=== PATIENT | male | born 1940 | race Caucasian/White ===

== ENCOUNTER 2020-11-25 18:07 | Inpatient (IN) ==
--- NOTE | 2020-11-25 18:41 | Emergency Department Note ---
Impression & Plan Hypernatremia, Sepsis, Acute UTI, Respiratory failure, Elevated troponin, Elevated lactic acid level, Pulmonary edema, Altered mental status ED Provider Note Provider: Marlon Umana MD DATE OF SERVICE: 11/25/2020 CHIEF COMPLAINT: Weakness, lethargy, elevated sodium HISTORY OF PRESENT ILLNESS: Patient is a 80-year-old gentleman history of Lewy body dementia and enlarged prostate with retention issues currently with an indwelling catheter and history of UTI/VRE presenting via ambulance from [facility] today with report that he has been weaker more lethargic and has an elevated sodium. Patient himself and provide significant history but does not appear in any obvious distress. EMS report the patient is currently been on Bactrim for a urinary infection and sodium has been rising and is not acting himself so came here for further evaluation. Did discuss via phone with the patient's daughter and later the patient's other daughter at bedside patient's recent history. 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 Reportedly has a history of A. fib is anticoagulated on Eliquis. Daughter states she helped feed him on Wednesday perked up a little bit but thinks he is not getting enough to eat or drink. She has concerns about infection from the urine as well. She reports the patient would not want CPR or intubation would be okay with other medications and vasoactive infusions. REVIEW OF SYSTEMS: Unable to time for the patient due to his mental status PAST MEDICAL HISTORY: As noted above MEDICATIONS: Reviewed medication list from the facility SOCIAL HISTORY: Patient is retired realtor appraiser real estate, currently residing at nursing facility, PHYSICAL EXAM: GENERAL: alert to loud verbal and painful stimuli no acute distress on the stretcher laying on his left side. Patient does not appear to be oriented and does not answer significant questions. Head: normocephalic and atraumatic EYES: No injection, discharge or icterus. NECK: Trachea midline. Supple. ENT: Mucous membranes pink but dry. LUNGS: Airway patent. No retractions. Breath sounds coarse with diminished ba ses HEART: Irregular and tachycardic rate and rhythm. No chest wall tenderness ABDOMEN: Soft and non-tender, without guarding or rebound. Chronic Pisano in place with some injury to the penile meatus from chronic placement. Urine appears cloudy and dark yellow. BACK: No midline tenderness, No bilateral flank tenderness. SKIN: Acyanotic, warm, dry EXTREMITIES: Without swelling, tenderness or deformity NEUROLOGICAL: No focal deficits. No facial droop. Patient does not follow simple commands but moves all extremities. EK bpm atrial fibrillation ventricular response. No PVCs noted. No acute ST segment elevation noted with some anterior T wave changes without priors for available for comparison. CONTINUOUS CARDIAC MONITORING: was ordered and showed a heart rate of 90s - 120s bpm in atrial fibrillation Patient's laboratory studies and imaging reviewed. Differential includes Infection, dehydration, metabolic abnormality, hypo/hyperglycemia, electrolyte disturbance, anemia, hypoxia, cardiac sources, intracerebral event, toxicologic, neurologic, as well as other pathologies. IMPRESSION/MEDICAL DECISION MAKING: Patient presents with worsening lethargy and elevated sodium from his nursing facility. Discussed with family significant history of resistant UTIs including VRE (hospitalizations in the [facility] system). Urinalysis appears concerning for infection. Covered broadly with Zosyn and daptomycin. Patient's blood pressure low initially and given some IV fluid hydration; initially ordered for 3 L (over 30 mL/kg) but was held after approximately 1 L the patient had a decline in his respiratory status and x-ray is concerning for fluid overload. Initially was concerned for some dehydration given his hyponatremia and reported decreased intake however respiratory status does not seem to indicate that much dehydration given the significant pulmonary edema he is developing; patient without significant lower extremity swelling. Blood pressure did improve some. Patient was transitioned from nasal cannula to Oxymask and discussed with respiratory possibly running high flow nasal cannula although patient was able to avoid high flow nasal cannula. Lactate is elevated as well as slightly troponin. Believe is more of a demand situation related to his metabolic status and urine infection than ACS. Leukocytosis is not appreciated and only very mild anemia. Urinalysis is highly concerning for infection. No significant focal deficit and lower suspicion for acute CVA and no believe he need a head CT at this time. Covid was negative. Daughter present at bedside and updated. Hospitalist was contacted. Some slightly elevated heart rate but do not want to proceed with aggressive rate control given possible infectious source and his hypotension. Patient's repeat lactate is downtrending. Covid was negative. DIAGNOSIS: Hypernatremia, acute UTI, sepsis, hypoxic respiratory failure, elevated lactate, elevated troponin, pulmonary edema, ams DISPOSITION: Hospitalist will evaluate Daughter at bedside was updated on findings. Critical Care I have personally spent 40 minutes of critical care time in the direct management of this patient. This includes bedside care, interpretation of diagnostic studies, and testing, discussion with consultants, patient, and family members, and other required patient management activities. These 40 minutes is in excess of all separately billable procedures. Past Med/Surg History Social History Smoking Status: Unknown if ever smoked Hx Alcohol Use: No Hx Substance Use: No Preferred Language: Albanian Communication Ability: Impaired Refrigeration Installer Required: No Beliefs That Will Affect Care: None Current Living Situation: Personal Care Facility Other Information That Helps Us Care for You: No Feels Safe at Home: Declines to Answer Assistive Devices: Oxygen - Continuous Assistive Devices Comment: Chronic Pisano catheter. Allergies Allergies Allergy/AdvReac Type Severity Reaction Status Date / Time dorzolamide Allergy Unknown ON Verified 11/25/20 19:07 HEARTIDE MED LIST haloperidol [From Haldol] Allergy Unknown ON Verified 11/25/20 19:07 HEARTIDE MED LIST olanzapine [From Zyprexa] Allergy Unknown ON [facility] Med[facility] Home Medications Medication Instructions Recorded Confirmed acetaminophen [Tylenol] 650 mg PO Q6H PRN MDD 3 GRAMS/24 11/25/20 11/25/20 HOURS apixaban [Eliquis] 5 mg PO BID 11/25/20 11/25/20 bacitracin 1 applic TOPICAL TID 11/25/20 11/25/20 bisacodyl 5 mg PO Q24H PRN 11/25/20 11/25/20 citalopram [Celexa] 10 mg PO QAM 11/25/20 11/25/20 diltiazem HCl 30 mg PO TID 11/25/20 11/25/20 felodipine 10 mg PO DAILY 11/25/20 11/25/20 finasteride 5 mg PO DAILY 11/25/20 11/25/20 lorazepam [Ativan] 0.5 mg PO BID 11/25/20 11/25/20 memantine 10 mg PO BID 11/25/20 11/25/20 metoprolol tartrate 25 mg PO BID 11/25/20 11/25/20 pantoprazole 40 mg PO DAILY 11/25/20 11/25/20 polyethylene glycol 3350 [Miralax] 17 g PO QAM 11/25/20 11/25/20 quetiapine [Seroquel] 100 mg PO HS 11/25/20 11/25/20 quetiapine [Seroquel] See Rx Instructions .ROUTE .COMPLEX 11/25/20 11/25/20 rivastigmine tartrate 1.5 mg PO BID 11/25/20 11/25/20 sennosides [senna] 17.2 mg PO HS 11/25/20 11/25/20 sulfamethoxazole-trimethoprim 1 tab PO BID 11/25/20 11/25/20 [Bactrim DS] tamsulosin [Flomax] 0.4 mg PO DAILY 11/25/20 11/25/20 Results & Data (ED) Vital Signs Vital Signs - 24 hr 11/25/20 17:33 11/25/20 18:17 11/25/20 18:19 Temperature 36.8 C Temperature Source Oral Pulse Rate 106 H 139 H Pulse Rate [Bilateral Apical] Pulse Rate from SpO2 Sensor Pulse Rhythm Irregular Respiratory Rate 22 22 Respiratory Effort / Characteristics Non-Labored Respiratory Depth Normal Respiratory Pattern Regular Blood Pressure 86/48 L Blood Pressure [Left Arm] Blood Pressure Mean 60 Blood Pressure Mean [Left Arm] Blood Pressure Position Lying Pulse Oximetry 92 88 L 86 L Oxygen Delivery Method Oxymask Room Air Room Air Oxygen Flow Rate 10 Sepsis Recent Fever Within 48 Hours No Sepsis New/Unexplained Change in Mental Status No Sepsis Action Taken by Nursing Physician Notified Oxygen Flow Rate - Titration Pulse Oximetry Post Tiitration 11/25/20 18:20 11/25/20 18:29 11/25/20 18:31 Temperature Temperature Source Pulse Rate 118 H 110 H 118 H Pulse Rate [Bilateral Apical] Pulse Rate from SpO2 Sensor 113 H 107 H 116 H Pulse Rhythm Respiratory Rate 15 9 L 6 L Respiratory Effort / Characteristics Respiratory Depth Respiratory Pattern Blood Pressure 86/48 L 85/50 L 73/58 L Blood Pressure [Left Arm] Blood Pressure Mean 60 61 63 Blood Pressure Mean [Left Arm] Blood Pressure Position Pulse Oximetry 92 89 L Oxygen Delivery Method Nasal Cannula Nasal Cannula Oxygen Flow Rate 4 2 Sepsis Recent Fever Within 48 Hours Sepsis New/Unexplained Change in Mental Status Sepsis Action Taken by Nursing Oxygen Flow Rate - Titration 3 Pulse Oximetry Post Tiitration 90 11/25/20 18:38 11/25/20 18:45 11/25/20 18:47 Temperature Temperature Source Pulse Rate 110 H 111 H 112 H Pulse Rate [Bilateral Apical] Pulse Rate from SpO2 Sensor 106 H 110 H 105 H Pulse Rhythm Respiratory Rate 24 26 H 28 H Respiratory Effort / Characteristics Respiratory Depth Respiratory Pattern Blood Pressure 91/62 L 98/74 L Blood Pressure [Left Arm] Blood Pressure Mean 71 82 Blood Pressure Mean [Left Arm] Blood Pressure Position Pulse Oximetry 91 91 Oxygen Delivery Method Nasal Cannula Nasal Cannula Oxygen Flow Rate 4 4 Sepsis Recent Fever Within 48 Hours Sepsis New/Unexplained Change in Mental Status Sepsis Action Taken by Nursing Oxygen Flow Rate - Titration Pulse Oximetry Post Tiitration 11/25/20 18:51 11/25/20 19:00 11/25/20 19:13 Temperature Temperature Source Pulse Rate Pulse Rate [Bilateral Apical] Pulse Rate from SpO2 Sensor 106 H Pulse Rhythm Respiratory Rate 27 H 27 H 21 Respiratory Effort / Characteristics Non-Labored Respiratory Depth Respiratory Pattern Blood Pressure 101/56 L 91/66 L Blood Pressure [Left Arm] Blood Pressure Mean 71 74 Blood Pressure Mean [Left Arm] Blood Pressure Position Pulse Oximetry 92 91 Oxygen Delivery Method Nasal Cannula Nasal Cannula Oxygen Flow Rate 4 4 Sepsis Recent Fever Within 48 Hours Sepsis New/Unexplained Change in Mental Status Sepsis Action Taken by Nursing Oxygen Flow Rate - Titration Pulse Oximetry Post Tiitration 11/25/20 19:15 11/25/20 19:30 11/25/20 19:41 Temperature Temperature Source Pulse Rate 113 H 104 H 106 H Pulse Rate [Bilateral Apical] Pulse Rate from SpO2 Sensor 104 H 107 H 103 H Pulse Rhythm Respiratory Rate 24 22 24 Respiratory Effort / Characteristics Non-Labored Respiratory Depth Respiratory Pattern Blood Pressure 115/73 101/59 L 110/41 L Blood Pressure [Left Arm] Blood Pressure Mean 87 73 64 Blood Pressure Mean [Left Arm] Blood Pressure Position Pulse Oximetry 92 91 Oxygen Delivery Method Nasal Cannula Nasal Cannula Oxygen Flow Rate 4 4 Sepsis Recent Fever Within 48 Hours Sepsis New/Unexplained Change in Mental Status Sepsis Action Taken by Nursing Oxygen Flow Rate - Titration Pulse Oximetry Post Tiitration 11/25/20 19:45 11/25/20 19:46 11/25/20 19:47 Temperature Temperature Source Pulse Rate 108 H 116 H 112 H Pulse Rate [Bilateral Apical] Pulse Rate from SpO2 Sensor 97 H 104 H 102 H Pulse Rhythm Respiratory Rate 31 H 19 21 Respiratory Effort / Characteristics Respiratory Depth Respiratory Pattern Blood Pressure 90/72 L Blood Pressure [Left Arm] Blood Pressure Mean 78 Blood Pressure Mean [Left Arm] Blood Pressure Position Pulse Oximetry 90 91 Oxygen Delivery Method Nasal Cannula Oxygen Flow Rate 4 Sepsis Recent Fever Within 48 Hours Sepsis New/Unexplained Change in Mental Status Sepsis Action Taken by Nursing Oxygen Flow Rate - Titration Pulse Oximetry Post Tiitration 11/25/20 20:00 11/25/20 20:01 11/25/20 20:16 Temperature Temperature Source Pulse Rate 108 H 109 H 114 H Pulse Rate [Bilateral Apical] Pulse Rate from SpO2 Sensor 103 H 108 H Pulse Rhythm Respiratory Rate 19 19 20 Respiratory Effort / Characteristics Non-Labored Respiratory Depth Respiratory Pattern Blood Pressure 85/35 L 102/62 Blood Pressure [Left Arm] Blood Pressure Mean 51 75 Blood Pressure Mean [Left Arm] Blood Pressure Position Pulse Oximetry 92 89 L Oxygen Delivery Method Nasal Cannula Nasal Cannula Oxygen Flow Rate 4 4 Sepsis Recent Fever Within 48 Hours Sepsis New/Unexplained Change in Mental Status Sepsis Action Taken by Nursing Oxygen Flow Rate - Titration Pulse Oximetry Post Tiitration 11/25/20 20:23 11/25/20 20:26 11/25/20 20:30 Temperature Temperature Source Pulse Rate 113 H 109 H Pulse Rate [Bilateral Apical] 111 H Pulse Rate from SpO2 Sensor 107 H 102 H Pulse Rhythm Respiratory Rate 23 22 20 Respiratory Effort / Characteristics Non-Labored Respiratory Depth Respiratory Pattern Blood Pressure 101/43 L 95/61 L Blood Pressure [Left Arm] 101/43 L Blood Pressure Mean 62 72 Blood Pressure Mean [Left Arm] 62 Blood Pressure Position Pulse Oximetry 92 88 L 92 Oxygen Delivery Method Nasal Cannula Nasal Cannula Oxymask Oxygen Flow Rate 5 4 10 Sepsis Recent Fever Within 48 Hours Sepsis New/Unexplained Change in Mental Status Sepsis Action Taken by Nursing Oxygen Flow Rate - Titration Pulse Oximetry Post Tiitration 11/25/20 20:45 11/25/20 21:00 11/25/20 21:15 Temperature Temperature Source Pulse Rate 111 H 105 H 108 H Pulse Rate [Bilateral Apical] Pulse Rate from SpO2 Sensor 119 H 99 H 105 H Pulse Rhythm Respiratory Rate 20 20 16 Respiratory Effort / Characteristics Non-Labored Respiratory Depth Respiratory Pattern Blood Pressure 98/57 L 107/47 L 91/60 L Blood Pressure [Left Arm] Blood Pressure Mean 70 67 70 Blood Pressure Mean [Left Arm] Blood Pressure Position Pulse Oximetry 92 91 Oxygen Delivery Method Oxymask Oxymask Oxygen Flow Rate 10 10 Sepsis Recent Fever Within 48 Hours Sepsis New/Unexplained Change in Mental Status Sepsis Action Taken by Nursing Oxygen Flow Rate - Titration Pulse Oximetry Post Tiitration 11/25/20 21:30 11/25/20 21:31 Temperature Temperature Source Pulse Rate 112 H 111 H Pulse Rate [Bilateral Apical] Pulse Rate from SpO2 Sensor 109 H 106 H Pulse Rhythm Respiratory Rate 19 25 H Respiratory Effort / Characteristics Respiratory Depth Respiratory Pattern Blood Pressure 93/67 L Blood Pressure [Left Arm] Blood Pressure Mean 75 Blood Pressure Mean [Left Arm] Blood Pressure Position Pulse Oximetry 91 Oxygen Delivery Method Oxymask Oxygen Flow Rate 10 Sepsis Recent Fever Within 48 Hours Sepsis New/Unexplained Change in Mental Status Sepsis Action Taken by Nursing Oxygen Flow Rate - Titration Pulse Oximetry Post Tiitration Laboratory Data Result diagrams: 11/25/20 19:03 11/25/20 19:03 Lab Results 11/25/20 11/25/20 11/25/20 Range/Units 19:03 19:03 19:03 WBC 9.82 (4.8-10.8) K/uL RBC 3.93 L (4.7-6.1) M/uL Hgb 12.1 L (14.0-18.0) g/dL Hct 39.2 L (42-52) % MCV 99.7 (80-100) fL MCH 30.8 (25-34) pg MCHC 30.9 L (32-36) g/dL RDW Std Deviation 59.1 H (36.4-46.3) fL RDW Coeff of Sandrine 16.3 H (11.5-14.5) % Plt Count 120 L (130-400) K/uL MPV 13.0 H (7.4-10.4) fL Immature Gran % (Auto) 0.3 % Neut % (Auto) 89.2 % Lymph % (Auto) 5.8 % Edmonson % (Auto) 3.0 % Eos % (Auto) 1.7 % Baso % (Auto) 0.0 % Neut # (Auto) 8.76 H (1.4-6.5) K/uL Lymph # (Auto) 0.57 L (1.2-3.4) K/uL Edmonson # (Auto) 0.29 (0.11-0.59) K/uL Eos # (Auto) 0.17 (0-0.5) K/uL Baso # (Auto) 0.00 (0-0.2) K/uL Immature Gran # (Auto) 0.03 H (0.00-0.02) K/uL Platelet Estimate Normal (Normal) Echinocytes 2+ Acanthocytes (Spur) 1+ PT (9.0-12.0) Seconds INR (0.9-1.1) APTT (21.0-31.0) Seconds PTT Ratio Sodium 158 H* (136-145) mmol/L Potassium 4.4 (3.5-5.1) mmol/L Chloride 125 H (98-107) mmol/L Carbon Dioxide 26 (21-32) mmol/L Anion Gap 7.0 (3-11) BUN 39 H (7-18) mg/dl Creatinine 1.05 (0.6-1.4) mg/dl Est Cr Clr Drug Dosing 53.4 ml/min Est GFR ( Amer) 76.8 ml/min Est GFR (Non-Af Amer) 66.3 ml/min BUN/Creatinine Ratio 37.0 H (10-20) Glucose 92 (70-99) mg/dl Osmolality (280-300) mOsm/kg Lactate (0.4-2.0) mmol/L Calcium 8.8 (8.5-10.1) mg/dl Magnesium 2.5 H (1.8-2.4) mg/dl Total Bilirubin 0.8 (0.2-1) mg/dl AST 60 H (15-37) U/L ALT 41 (12-78) U/L Alkaline Phosphatase 77 (45-117) U/L Troponin I 0.054 H* (0-0.045) ng/ml Total Protein 5.3 L (6.4-8.2) gm/dl Albumin 2.3 L (3.4-5.0) gm/dl Globulin 3.0 (2.5-4.0) gm/dl Albumin/Globulin Ratio 0.8 L (0.9-2) Lipase 166 (73-393) U/L Procalcitonin 0.06 (0-0.5) ng/ml 06/21/21 06/21/21 06/21/21 Range/Units 19:03 19:03 19:03 WBC (4.8-10.8) K/uL RBC (4.7-6.1) M/uL Hgb (14.0-18.0) g/dL Hct (42-52) % MCV (80-100) fL MCH (25-34) pg MCHC (32-36) g/dL RDW Std Deviation (36.4-46.3) fL RDW Coeff of Sandrine (11.5-14.5) % Plt Count (130-400) K/uL MPV (7.4-10.4) fL Immature Gran % (Auto) % Neut % (Auto) % Lymph % (Auto) % Edmonson % (Auto) % Eos % (Auto) % Baso % (Auto) % Neut # (Auto) (1.4-6.5) K/uL Lymph # (Auto) (1.2-3.4) K/uL [place]on # (Auto) (0.11-0.59) K/uL Eos # (Auto) (0-0.5) K/uL Baso # (Auto) (0-0.2) K/uL Immature Gran # (Auto) (0.00-0.02) K/uL Platelet Estimate (Normal) Echinocytes Acanthocytes (Spur) PT 13.0 H (9.0-12.0) Seconds INR 1.3 H (0.9-1.1) APTT 32.7 H (21.0-31.0) Seconds PTT Ratio 1.2 Sodium (136-145) mmol/L Potassium (3.5-5.1) mmol/L Chloride (98-107) mmol/L Carbon Dioxide (21-32) mmol/L Anion Gap (3-11) BUN (7-18) mg/dl Creatinine (0.6-1.4) mg/dl Est Cr Clr Drug Dosing ml/min Est GFR ( Amer) ml/min Est GFR (Non-Af Amer) ml/min BUN/Creatinine Ratio (10-20) Glucose (70-99) mg/dl Osmolality 333 H (280-300) mOsm/kg Lactate 4.2 H* (0.4-2.0) mmol/L Calcium (8.5-10.1) mg/dl Magnesium (1.8-2.4) mg/dl Total Bilirubin (0.2-1) mg/dl AST (15-37) U/L ALT (12-78) U/L Alkaline Phosphatase (45-117) U/L Troponin I (0-0.045) ng/ml Total Protein (6.4-8.2) gm/dl Albumin (3.4-5.0) gm/dl Globulin (2.5-4.0) gm/dl Albumin/Globulin Ratio (0.9-2) Lipase (73-393) U/L Procalcitonin (0-0.5) ng/ml 11/25/20 Range/Units 20:51 WBC (4.8-10.8) K/uL RBC (4.7-6.1) M/uL Hgb (14.0-18.0) g/dL Hct (42-52) % MCV (80-100) fL MCH (25-34) pg MCHC (32-36) g/dL RDW Std Deviation (36.4-46.3) fL RDW Coeff of Sandrine (11.5-14.5) % Plt Count (130-400) K/uL MPV (7.4-10.4) fL Immature Gran % (Auto) % Neut % (Auto) % Lymph % (Auto) % [place]mons[place] % (Auto) % Eos % (Auto) % Baso % (Auto) % Neut # (Auto) (1.4-6.5) K/uL Lymph # (Auto) (1.2-3.4) K/uL [place] # (Auto) (0.11-0.59) K/uL Eos # (Auto) (0-0.5) K/uL Baso # (Auto) (0-0.2) K/uL Immature Gran # (Auto) (0.00-0.02) K/uL Platelet Estimate (Normal) Echinocytes Acanthocytes (Spur) PT (9.0-12.0) Seconds INR (0.9-1.1) APTT (21.0-31.0) Seconds PTT Ratio Sodium (136-145) mmol/L Potassium (3.5-5.1) mmol/L Chloride (98-107) mmol/L Carbon Dioxide (21-32) mmol/L Anion Gap (3-11) BUN (7-18) mg/dl Creatinine (0.6-1.4) mg/dl Est Cr Clr Drug Dosing ml/min Est GFR ( Amer) ml/min Est GFR (Non-Af Amer) ml/min BUN/Creatinine Ratio (10-20) Glucose (70-99) mg/dl Osmolality (280-300) mOsm/kg Lactate 2.3 H* (0.4-2.0) mmol/L Calcium (8.5-10.1) mg/dl Magnesium (1.8-2.4) mg/dl Total Bilirubin (0.2-1) mg/dl AST (15-37) U/L ALT (12-78) U/L Alkaline Phosphatase (45-117) U/L Troponin I (0-0.045) ng/ml Total Protein (6.4-8.2) gm/dl Albumin (3.4-5.0) gm/dl Globulin (2.5-4.0) gm/dl Albumin/Globulin Ratio (0.9-2) Lipase (73-393) U/L Procalcitonin (0-0.5) ng/ml Administered Medications Piperacillin Sod/Tazobactam (Sod 3.375 gm/ Dextrose) 115 mls @ 28.75 mls/hr IV Q8H SUSAN; Protocol Stop: 12/06/20 00:00 Last Admin: 11/26/20 00:43 Dose: 28.8 mls/hr Documented by: [id number] Discontinued Medications Albumin Human (Albumin Human 25% 12.5 Gm/50 Ml Vial) Confirm Administered Dose 25 gm IV .STK-MED ONE Stop: 11/25/20 21:00 Last Admin: 11/25/20 23:23 Dose: Not Given Documented by: [id number] Furosemide (Furosemide 40 Mg/4 Ml Vial) 40 mg IV ONE ONE Stop: 11/25/20 21:31 Last Admin: 11/25/20 21:31 Dose: 40 mg Documented by: [id number] Sodium Chloride (Nss 1000ml) 1,000 mls @ 999 mls/hr IV .Q1H1M SUSAN Stop: 11/25/20 19:39 Last Infusion: 11/25/20 19:57 Dose: 0 mls/hr Documented by: [id number] Admin: 11/25/20 18:55 Dose: 999 mls/hr Documented by: [id number] Lactated Ringer's (Lr) 1,000 mls @ 999 mls/hr IV .Q1H1M ONE Stop: 11/25/20 19:51 Last Infusion: 11/25/20 20:45 Dose: 0 mls/hr Documented by: [id number] Admin: 11/25/20 19:34 Dose: 999 mls/hr Documented by: [id number] Daptomycin 400 mg/ Syringe 8 mls @ 4 mls/min IV NOW ONE; Protocol Stop: 11/25/20 18:55 Last Admin: 11/25/20 19:37 Dose: 4 mls/min Documented by: [id number] Piperacillin Sod/Tazobactam Sod (Zosyn) 4.5 gm in 120 mls @ 240 mls/hr IV NOW ONE Stop: 11/25/20 19:25 Last Infusion: 11/25/20 20:15 Dose: 0 mls/hr Documented by: [id number] Admin: 11/25/20 19:34 Dose: 240 mls/hr Documented by: [id number] Albumin Human (Albumin 25%) 12.5 gm in 50 mls @ 50 mls/hr IV Q1H STA Stop: 11/25/20 21:55 Last Infusion: 11/25/20 22:08 Dose: 0 mls/hr Documented by: [id number] Admin: 11/25/20 21:05 Dose: 50 mls/hr Documented by: [id number] Albumin Human (Albumin 25%) 12.5 gm in 50 mls @ 50 mls/hr IV Q1H SUSAN Stop: 11/26/20 01:14 Last Infusion: 11/26/20 01:16 Dose: 0 mls/hr Documented by: [id number] Admin: 11/26/20 00:16 Dose: 50 mls/hr Documented by: [id number] Infusion: 11/26/20 00:15 Dose: 0 mls/hr Documented by: [id number] Admin: 11/25/20 23:27 Dose: 50 mls/hr Documented by: [id number] Infusion: 11/25/20 23:20 Dose: 0 mls/hr Documented by: [id number] Admin: 11/25/20 21:56 Dose: 50 mls/hr Documented by: [id number] Imaging Data Radiologist's Impression: Chest X-Ray 11/25/20 18:39 SINGLE VIEW CHEST CLINICAL HISTORY: Sepsis. FINDINGS: 2 AP, portable, supine chest radiographs are obtained. No prior studies are available for comparison at the time of dictation. The examination is degraded by portable technique and patient rotation. The patient's head obscures the apices. The patient is status post midline sternotomy. The heart is enlarged noting atherosclerotic calcification of the thoracic aorta. There is pulmonary vascular congestion with interstitial edema. Trace pleural effusions are suspected. No pneumothorax is seen. The skeletal structures are osteopenic. The bony thorax is grossly intact. IMPRESSION: 1. Cardiomegaly with evidence of congestive failure and interstitial edema. Radiographic follow-up to resolution is recommended. 2. Suspect small pleural effusions. ACT 112: Negative or not required by law. Electronically signed by: Car Avina M.D. 11/25/2020 7:44 PM Discharge Plan Visit Data Chief Complaint: Altered Mental Status Stated Complaint: AMS, LETHARGIC, ABNORMAL LABS ED Provider: Marlon Umana Discharge Problem: Hypernatremia, Sepsis, Acute UTI, Respiratory failure, Elevated troponin, Elevated lactic acid level, Pulmonary edema, Altered mental status Patient Disposition: Admitted As Inpatient Discharge Instructions Interventions: ED Discharge Assessment Last Done: 11/25/20 22:34 Discharge Problem: Sepsis Qualifiers: Sepsis type: sepsis due to unspecified organism Sepsis acute organ dysfunction status: with acute organ dysfunction Severe sepsis acute organ dysfunction type: acute respiratory failure Acute respiratory failure type: with hypoxia Severe sepsis shock status: unspecified Qualified Code(s): A41.9 - Sepsis, unspecified organism Respiratory failure Qualifiers: Chronicity: acute Respiratory failure complication: hypoxia Qualified Code(s): J96.01 - Acute respiratory failure with hypoxia Pulmonary edema Qualifiers: Chronicity: acute Qualified Code(s): J81.0 - Acute pulmonary edema Altered mental status Qualifiers: Altered mental status type: disorientation Qualified Code(s): R41.0 - Disorientation, unspecified
[2020-11-25] MEDS ORDERED: SODIUM CHLORIDE 0.9% 1000ML 1,000 ML IV SCH (18:45)
[2020-11-25] MEDS ORDERED: LACTATED RINGER'S 1,000 ML IV ONE (18:51)
[2020-11-25] MEDS ORDERED: DAPTOmycin 400 MG in SYRINGE 0 ML IV ONE (18:54)
[2020-11-25] MEDS ORDERED: PIPERACILL/TAZOBAC CONSULT ACTIVE PRN (18:56)
[2020-11-25] MEDS ORDERED: PIPERACILLIN/TAZOBACTAM 4.5 GM/120 ML BAG IV ONE (18:56)
[2020-11-25 19:17] LABS: Appearance Urine Turbid (Clear); Bacteria Urine Automated 4+ (Negative); Bilirubin Urine Negative (Negative); Blood Urine 2+ (Negative); Color Urine Dark Yellow; Epithelial Cell Urine Auto >30 /lpf (0-5); Glucose Urine UA Negative (Negative); Ketones Urine Negative (Negative); Leukocyte Esterase Urine 3+ (Negative); Nitrite Urine Negative (Negative); RBC Urine Automated >30 /hpf (0-4); Specific Gravity Urine 1.022 (1.000-1.030); Urobilinogen Urine Negative (Negative); WBC Urine Automated >30 /hpf (0-5); pH Urine >= 9.0 (4.5-7.5)
[2020-11-25 19:20] LABS: Protein Urine 1+ (Negative)
[2020-11-25 19:28] LABS: Cast Urine Automated 0 /lpf (0-5); Triple Phosphate Crystal Urine Present (None Prsent)
[2020-11-25 19:29] LABS: INR 1.3 (0.9-1.1); Partial Thromboplastin Ratio 1.2; Partial Thromboplastin Time 32.7 Seconds (21.0-31.0)
--- NOTE | 2020-11-25 19:46 | XRay Report ---
SINGLE VIEW CHEST CLINICAL HISTORY: Sepsis. FINDINGS: 2 AP, portable, supine chest radiographs are obtained. No prior studies are available for c omparison at the time of dictation. The examination is degraded by portable technique and patient rot ation. The patient's head obscures the apices. The patient is status post midline sternotomy. The hea rt is enlarged noting atherosclerotic calcification of the thoracic aorta. There is pulmonary vascula r congestion with interstitial edema. Trace pleural effusions are suspected. No pneumothorax is seen. The skeletal structures are osteopenic. The bony thorax is grossly intact. IMPRESSION: 1. Cardiomegaly with evidence of congestive failure and interstitial edema. Radiographic follow-up to resolution is recommended. 2. Suspect small pleural effusions. ACT 112: Negative or not required by law. Electronically signed by: Car Avina M.D. 11/25/2020 7:44 PM
[2020-11-25 20:04] LABS: Hematocrit (blood only) 39.2 % (42-52); Hemoglobin 12.1 g/dL (14.0-18.0); Mean Corpuscular Hemoglobin 30.8 pg (25-34); Mean Corpuscular Hgb Conc 30.9 g/dL (32-36); Mean Corpuscular Volume 99.7 fL (80-100); Platelet Count 120 K/uL (130-400); RDW Coefficient of Variation 16.3 % (11.5-14.5); RDW Standard Deviation 59.1 fL (36.4-46.3); Red Blood Count 3.93 M/uL (4.7-6.1); White Blood Count 9.82 K/uL (4.8-10.8)
[2020-11-25 20:05] LABS: Acanthocytes 1+; Albumin Globulin Ratio 0.8 (0.9-2); Albumin Level 2.3 gm/dl (3.4-5.0); Bilirubin,Total 0.8 mg/dl (0.2-1); Calcium 8.8 mg/dl (8.5-10.1); Creatinine Clr Calc Pharmacy 53.4 ml/min; Echinocytes 2+; Eosinophils # (auto) 0.17 K/uL (0-0.5); Eosinophils % (auto) 1.7 %; Est GFR (African American) 76.8 ml/min; Est GFR (Non-African American) 66.3 ml/min; Immature Granulocytes # (auto) 0.03 K/uL (0.00-0.02); Immature Granulocytes % (auto) 0.3 %; Lymphocytes # (auto) 0.57 K/uL (1.2-3.4); Lymphocytes % (auto) 5.8 %; Magnesium 2.5 mg/dl (1.8-2.4); Monocytes # (auto) 0.29 K/uL (0.11-0.59); Neutrophils # (auto) 8.76 K/uL (1.4-6.5); Neutrophils % (auto) 89.2 %; Platelet Estimate Normal (Normal); Potassium 4.4 mmol/L (3.5-5.1); Total Protein 5.3 gm/dl (6.4-8.2); Troponin I 0.054 ng/ml (0-0.045)
[2020-11-25] MEDS ORDERED: ALBUMIN 25% 12.5 GM/50 ML VIAL IV STA (20:56)
[2020-11-25] MEDS ORDERED: ALBUMIN HUMAN 25% 12.5 GM/50 ML VIAL IV ONE (20:59)
[2020-11-25] MEDS ORDERED: FUROSEMIDE 40 MG/4 ML VIAL IV ONE (21:30)
--- NOTE | 2020-11-25 21:48 | History & Physical Report ---
Date of Service November 25, 2020 Assessment & Plan (1) Altered mental status: Medications will be on hold until patient is able to swallow Present on Admission?: Yes (2) Hypernatremia: Sodium 158 upon admission, serum osmolality 333, urine osmolality 416. Patient did receive 1 L of normal saline and 1 L of all LR in the emergency department by the ED. However, he did become more hypoxic due to his present ation with pulmonary edema/CHF Follow serial laboratories Issues with balancing hypernatremia treatment and pulmonary edema in the face of sepsis Present on Admission?: Yes (3) Acute CHF: Acute CHF with hypoxia The patient will be admitted to telemetry for serial cardiac enzymes, serial EKG's, cardiac rhythm monitoring and a 2-D echocardiogram with Dopplers. Patient with unknown ejection fraction at this time He was given albumin 50 g IV followed by furosemide 40 mg IV while in the ED to improve hypoxia, attempting to balance this with his underlying hypernatremia. If his ejection fraction is low on morning echocardiogram, he may require a course of dobutamine Present on Admission?: Yes (4) Pulmonary edema: Pulse albumin and furosemide IV as his hyponatremia and CHF/pulmonary edema picture is monitored closely Present on Admission?: Yes (5) Elevated troponin: Following serial laboratories as noted above Present on Admission?: Yes (6) Acute UTI: Patient reportedly has had a number of admissions in the [facility] system for recurrent resistant UTIs, including VRE treated with linezolid. Follow urine culture and sensitivity Continue daptomycin IV and Zosyn IV is begun in the ED Present on Admission?: Yes (7) Sepsis: Balancing patient's issues with sepsis, hypernatremia and pulmonary edema as noted above. Present on Admission?: Yes (8) Atrial fibrillation: On chronic anticoagulation with apixaban, which will briefly be held until is able to take p.o. He may need to be placed on IV heparin and antrum if there is a prolonged interval Present on Admission?: Yes (9) Anxiety with depression: Holding medications until he can take p.o. Present on Admission?: Yes (10) BPH w urinary obs/LUTS: (11) Lewy body dementia: Lewy body dementia/anxiety with depression- Patient unable to contribute significantly to HPI or review review of systems Holding medications until is more alert and able to take p.o. Present on Admission?: Yes (12) Parkinson's disease: (13) Recurrent UTI: (14) GERD (gastroesophageal reflux disease): (15) Hypertension: History of Present Illness Chief Complaint: The patient is transferred to the emergency department from [facility] due to worsening generalized weakness, lethargy, confusion, increasing shortness of breath, decreased oral intake and laboratories showing an elevated sodium [facility] The patient is an 80-year-old male with a past medical history including Lewy body dementia, Parkinson's disease, restlessness and agitation, acute kidney failure, atrial fibrillation, BPH with LUTS, CAD, UTI, PAD, hypertension, neurogenic bladder, GERD, hyperlipidemia, anxiety, oropharyngeal phase dysphagia, cognitive deficit and recurrent major depressive disorder. He presents from [facility] as noted above. Work-up in the emergency department included following abnormal laboratories: Sodium 158, INR 1.3, AST 60, lactic acid 4.2, troponin 0.054, albumin 2.3, serum osmolality 333, urine osmolality 416. Patient was COVID-19 negative. Chest x-ray showed cardiomegaly with evidence of congestive heart failure and interstitial edema with radiographic follow-up to resolution recommended. Allergies Allergy/AdvReac Type Severity Reaction Status Date / Time dorzolamide Allergy Unknown ON Verified 11/25/20 19:07 [facility] haloperidol [From Haldol] Allergy Unknown ON Verified 11/25/20 19:07 [facility] olanzapine [From Zyprexa] Allergy Unknown ON Verified 11/25/20 19:07 [facility] Home Medications Medication Instructions Recorded Confirmed Type acetaminophen [Tylenol] 650 mg PO Q6H PRN MDD 3 GRAMS/24 11/25/20 11/25/20 History HOURS apixaban [Eliquis] 5 mg PO BID 11/25/20 11/25/20 History bacitracin 1 applic TOPICAL TID 11/25/20 11/25/20 History bisacodyl 5 mg PO Q24H PRN 11/25/20 11/25/20 History citalopram [Celexa] 10 mg PO QAM 11/25/20 11/25/20 History diltiazem HCl 30 mg PO TID 11/25/20 11/25/20 History felodipine 10 mg PO DAILY 11/25/20 11/25/20 History finasteride 5 mg PO DAILY 11/25/20 11/25/20 History lorazepam [Ativan] 0.5 mg PO BID 11/25/20 11/25/20 History memantine 10 mg PO BID 11/25/20 11/25/20 History metoprolol tartrate 25 mg PO BID 11/25/20 11/25/20 History pantoprazole 40 mg PO DAILY 11/25/20 11/25/20 History polyethylene glycol 3350 [Miralax] 17 g PO QAM 11/25/20 11/25/20 History quetiapine [Seroquel] 100 mg PO HS 11/25/20 11/25/20 History quetiapine [Seroquel] See Rx Instructions .ROUTE .COMPLEX 11/25/20 11/25/20 History rivastigmine tartrate 1.5 mg PO BID 11/25/20 11/25/20 History sennosides [senna] 17.2 mg PO HS 11/25/20 11/25/20 History sulfamethoxazole-trimethoprim 1 tab PO BID 11/25/20 11/25/20 History [Bactrim DS] tamsulosin [Flomax] 0.4 mg PO DAILY 11/25/20 11/25/20 History Past Med/Surg History Medical History (Updated 11/26/20 @ 05:04 by Dieudonne Zapata MD) Anxiety with depression Atrial fibrillation BPH w urinary obs/LUTS GERD (gastroesophageal reflux disease) Hypertension Lewy body dementia Parkinson's disease Recurrent UTI Social History Smoking Status: Unknown if ever smoked Hx Alcohol Use: No Hx Substance Use: No Preferred Language: Syriac Communication Ability: Impaired Crane Manager Required: No Beliefs That Will Affect Care: None Current Living Situation: Personal Care Facility Other Information That Helps Us Care for You: No Feels Safe at Home: Declines to Answer Assistive Devices: Oxygen - Continuous Assistive Devices Comment: Chronic Pisano catheter. Review of Systems Review of Systems: Unobtainable due to cognitive status Physical Exam Physical Exam: The patient is awake, alert and oriented 3, well developed and well nourished, normocephalic and atraumatic, lying in bed and in no acute distress. HEENT--PERRL, EOMI, mucous membranes and oropharynx dry. Neck--supple. No JVD. No bruits. Thyroid normal, trachea midline, no adenopathy. Heart--normal S1 and S2. No murmurs, rubs or gallops. Lungs--crackles at the bases to custodial up bilaterally. No respiratory distress, no accessory muscle use. Abdomen--normal bowel sounds and soft. Nontender. Nondistended. Extremities--2+ bilateral pretibial pitting edema Dermatologic--skin appears dry Neurologic--cranial nerves II through XII grossly intact. Rheumatologic--normal range of motion. Psychiatric--normal affect. Results & Data Results & Data ([facility]) Vital Signs (Past 12 Hours) Vital Signs Temp Pulse Pulse Resp BP BP Pulse Ox 11/25/20 21:00 25 H 92 11/25/20 20:26 111 H 22 101/43 L 88 L 11/25/20 20:00 27 H 92 11/25/20 19:46 116 H 19 90/72 L 11/25/20 19:45 108 H 31 H 90 11/25/20 19:41 106 H 24 110/41 L 11/25/20 19:30 104 H 22 101/59 L 91 11/25/20 19:15 113 H 24 115/73 92 11/25/20 19:13 21 91 11/25/20 19:00 27 H 91/66 L 92 11/25/20 18:51 27 H 101/56 L 11/25/20 18:47 112 H 28 H 98/74 L 91 11/25/20 18:45 111 H 26 H 11/25/20 18:38 110 H 24 91/62 L 91 11/25/20 18:31 118 H 6 L 73/58 L 11/25/20 18:29 110 H 9 L 85/50 L 89 L 11/25/20 18:20 118 H 15 86/48 L 92 11/25/20 18:19 139 H 22 86 L 11/25/20 18:17 98.2 F 106 H 22 86/48 L 88 L 11/25/20 17:33 92 Laboratory Results Laboratory Results WBC 9.82 K/uL (4.8-10.8) 11/25/20 19:03 RBC 3.93 M/uL (4.7-6.1) L 11/25/20 19:03 Hgb 12.1 g/dL (14.0-18.0) L 11/25/20 19:03 Hct 39.2 % (42-52) L 11/25/20 19:03 MCV 99.7 fL (80-100) 11/25/20 19:03 MCH 30.8 pg (25-34) 11/25/20 19:03 MCHC 30.9 g/dL (32-36) L 11/25/20 19:03 RDW Std Deviation 59.1 fL (36.4-46.3) H 11/25/20 19:03 RDW Coeff of Sandrine 16.3 % (11.5-14.5) H 11/25/20 19:03 Plt Count 120 K/uL (130-400) L 11/25/20 19:03 MPV 13.0 fL (7.4-10.4) H 11/25/20 19:03 Immature Gran % (Auto) 0.3 % 11/25/20 19:03 Neut % (Auto) 89.2 % 11/25/20 19:03 Lymph % (Auto) 5.8 % 11/25/20 19:03 Sutton % (Auto) 3.0 % 11/25/20 19:03 Eos % (Auto) 1.7 % 11/25/20 19:03 Baso % (Auto) 0.0 % 11/25/20 19:03 Neut # (Auto) 8.76 K/uL (1.4-6.5) H 11/25/20 19:03 Lymph # (Auto) 0.57 K/uL (1.2-3.4) L 11/25/20 19:03 Sutton # (Auto) 0.29 K/uL (0.11-0.59) 11/25/20 19:03 Eos # (Auto) 0.17 K/uL (0-0.5) 11/25/20 19:03 Baso # (Auto) 0.00 K/uL (0-0.2) 11/25/20 19:03 Immature Gran # (Auto) 0.03 K/uL (0.00-0.02) H 11/25/20 19:03 Platelet Estimate Normal (Normal) 11/25/20 19:03 Echinocytes 2+ 11/25/20 19:03 Acanthocytes (Spur) 1+ 11/25/20 19:03 PT 13.0 Seconds (9.0-12.0) H 11/25/20 19:03 INR 1.3 (0.9-1.1) H 11/25/20 19:03 APTT 32.7 Seconds (21.0-31.0) H 11/25/20 19:03 PTT Ratio 1.2 11/25/20 19:03 Sodium 158 mmol/L (136-145) H* 11/25/20 19:03 Potassium 4.4 mmol/L (3.5-5.1) 11/25/20 19:03 Chloride 125 mmol/L (98-107) H 11/25/20 19:03 Carbon Dioxide 26 mmol/L (21-32) 11/25/20 19:03 Anion Gap 7.0 (3-11) 11/25/20 19:03 BUN 39 mg/dl (7-18) H 11/25/20 19:03 Creatinine 1.05 mg/dl (0.6-1.4) 11/25/20 19:03 Est Cr Clr Drug Dosing 53.4 ml/min 11/25/20 19:03 Est GFR ( Amer) 76.8 ml/min 11/25/20 19:03 Est GFR (Non-Af Amer) 66.3 ml/min 11/25/20 19:03 BUN/Creatinine Ratio 37.0 (10-20) H 11/25/20 19:03 Glucose 92 mg/dl (70-99) 11/25/20 19:03 Osmolality 333 mOsm/kg (280-300) H 11/25/20 19:03 Lactate 2.3 mmol/L (0.4-2.0) H* 11/25/20 20:51 Calcium 8.8 mg/dl (8.5-10.1) 11/25/20 19:03 Magnesium 2.5 mg/dl (1.8-2.4) H 11/25/20 19:03 Total Bilirubin 0.8 mg/dl (0.2-1) 11/25/20 19:03 AST 60 U/L (15-37) H 11/25/20 19:03 ALT 41 U/L (12-78) 11/25/20 19:03 Alkaline Phosphatase 77 U/L (45-117) 11/25/20 19:03 Troponin I 0.052 ng/ml (0-0.045) H* 11/25/20 23:25 Total Protein 5.3 gm/dl (6.4-8.2) L 11/25/20 19:03 Albumin 2.3 gm/dl (3.4-5.0) L 11/25/20 19:03 Globulin 3.0 gm/dl (2.5-4.0) 11/25/20 19:03 Albumin/Globulin Ratio 0.8 (0.9-2) L 11/25/20 19:03 Lipase 166 U/L (73-393) 11/25/20 19:03 Procalcitonin 0.06 ng/ml (0-0.5) 11/25/20 19:03 Urine Color Dark Yellow 11/25/20 Unknown Urine Appearance Turbid (Clear) A 11/25/20 Unknown Urine pH >= 9.0 (4.5-7.5) H 11/25/20 Unknown Ur Specific Mcdermott 1.022 (1.000-1.030) 11/25/20 Unknown Urine Protein 1+ (Negative) H 11/25/20 Unknown Urine Glucose (UA) Negative (Negative) 11/25/20 Unknown Urine Ketones Negative (Negative) 11/25/20 Unknown Urine Blood 2+ (Negative) H 11/25/20 Unknown Urine Nitrite Negative (Negative) 11/25/20 Unknown Urine Bilirubin Negative (Negative) 11/25/20 Unknown Urine Urobilinogen Negative (Negative) 11/25/20 Unknown Ur Leukocyte Esterase 3+ (Negative) H 11/25/20 Unknown Urine WBC (Auto) >30 /hpf (0-5) H 11/25/20 Unknown Urine RBC (Auto) >30 /hpf (0-4) H 11/25/20 Unknown U Hyaline Cast (Auto) 0 /lpf (0-5) 11/25/20 Unknown U Epithel Cells (Auto) >30 /lpf (0-5) H 11/25/20 Unknown Urine Bacteria (Auto) 4+ (Negative) H 11/25/20 Unknown Urine Crystals Not Reportable 11/25/20 Unknown Triple Phos Crystals Present (None Prsent) A 11/25/20 Unknown Urine Osmolality 416 mOsm/kg (500-800) L 11/25/20 23:35 Nasal Screen MRSA (PCR) Positive (Negative) A 11/25/20 23:15 COVID-19 Eval Order Covid19 at [facility] 11/25/20 Unknown SARS-CoV-2 (PCR) NEGATIVE (Negative) 11/25/20 Unknown Impressions Chest X-Ray 11/25/20 18:39 SINGLE VIEW CHEST CLINICAL HISTORY: Sepsis. FINDINGS: 2 AP, portable, supine chest radiographs are obtained. No prior studies are available for comparison at the time of dictation. The examination is degraded by portable technique and patient rotation. The patient's head obscures the apices. The patient is status post midline sternotomy. The heart is enlarged noting atherosclerotic calcification of the thoracic aorta. There is pulmonary vascular congestion with interstitial edema. Trace pleural effusions are suspected. No pneumothorax is seen. The skeletal structures are osteopenic. The bony thorax is grossly intact. IMPRESSION: 1. Cardiomegaly with evidence of congestive failure and interstitial edema. Radiographic follow-up to resolution is recommended. 2. Suspect small pleural effusions. ACT 112: Negative or not required by law. Electronically signed by: Car Avina M.D. 11/25/2020 7:44 PM Code Status & VTE Plan Code Status DNR/DNI VTE Prophylaxis Plan VTE Prophylaxis will be ordered: Yes PG Care Time/CCT Total # of Minutes Spent Total Time Spent with Patient: Total time spent is greater than 50% in coordination of care (as documented) at patient's floor/unit and/or counseling patient: Coding Level of Care Code 73393 Initial Inpt Care Lvl 3 Diagnoses Altered mental status R41.0 Altered mental status type: disorientation Hypernatremia E87.0 Acute CHF I50.9 Pulmonary edema J81.0 Chronicity: acute Elevated troponin R77.8 Acute UTI N39.0 Sepsis A41.9; R65.20; J96.01 Acute respiratory failure type: with hypoxia Sepsis acute organ dysfunction status: with acute organ dysfunction Sepsis type: sepsis due to unspecified organism Severe sepsis acute organ dysfunction type: acute respiratory failure Severe sepsis shock status: unspecified Atrial fibrillation I48.91 Anxiety with depression F41.8 BPH w urinary obs/LUTS N40.1; N13.8 Lewy body dementia G31.83; F02.80 Parkinson's disease G20 Recurrent UTI N39.0 GERD (gastroesophageal reflux disease) K21.9 Hypertension I10 (1) Pulmonary edema Chronicity: acute Qualified Code(s): J81.0 - Acute pulmonary edema (2) Sepsis Acute respiratory failure type: with hypoxia Sepsis acute organ dysfunction status: with acute organ dysfunction Sepsis type: sepsis due to unspecified organism Severe sepsis acute organ dysfunction type: acute respiratory failure Severe sepsis shock status: unspecified Qualified Code(s): A41.9 - Sepsis, unspecified organism; R65.20 - Severe sepsis without septic shock; J96.01 - Acute respiratory failure with hypoxia (3) Altered mental status Altered mental status type: disorientation Qualified Code(s): R41.0 - Disorientation, unspecified
[2020-11-25] MEDS: ALBUMIN 25% 12.5 GM/50 ML VIAL IV SCH ×2 (21:56→23:27)
[2020-11-25] MEDS ORDERED: ONDANSETRON INJ 2 MG/ML 2 ML VIAL IV PRN (23:12)
[2020-11-25] MEDS ORDERED: ACETAMINOPHEN 1000 MG/100 ML IV IV PRN (23:12)
[2020-11-26] MEDS: ALBUMIN 25% 12.5 GM/50 ML VIAL IV SCH ×3 (00:16→03:42)
[2020-11-26] MEDS: PIPERACILLIN/TAZOBACTAM 3.375 GM in DEXTROSE 5% 100 ML IV SCH ×2 (00:43→09:35)
[2020-11-26] MEDS: DEXTROSE 5% 1,000 ML IV SCH ×2 (03:44→16:23)
[2020-11-26 06:10] LABS: INR 1.3 (0.9-1.1); Partial Thromboplastin Ratio 1.6; Prothrombin Time 13.2 Seconds (9.0-12.0)
[2020-11-26 06:40] LABS: Hematocrit (blood only) 34.5 % (42-52); Hemoglobin 10.6 g/dL (14.0-18.0); Mean Corpuscular Hemoglobin 31.2 pg (25-34); Mean Corpuscular Hgb Conc 30.7 g/dL (32-36); Mean Corpuscular Volume 101.5 fL (80-100); Mean Platelet Volume 13.4 fL (7.4-10.4); Platelet Count 102 K/uL (130-400); RDW Coefficient of Variation 16.4 % (11.5-14.5); RDW Standard Deviation 60.5 fL (36.4-46.3); White Blood Count 8.44 K/uL (4.8-10.8)
[2020-11-26 06:41] LABS: Acanthocytes 1+; Basophils # (auto) 0.01 K/uL (0-0.2); Basophils % (auto) 0.1 %; Eosinophils # (auto) 0.03 K/uL (0-0.5); Eosinophils % (auto) 0.4 %; Immature Granulocytes # (auto) 0.01 K/uL (0.00-0.02); Immature Granulocytes % (auto) 0.1 %; Lymphocytes # (auto) 0.44 K/uL (1.2-3.4); Lymphocytes % (auto) 5.2 %; Monocytes # (auto) 0.23 K/uL (0.11-0.59); Monocytes % (auto) 2.7 %; Neutrophils # (auto) 7.72 K/uL (1.4-6.5); Neutrophils % (auto) 91.5 %; Platelet Estimate Decreased (Normal)
[2020-11-26 07:10] LABS: Albumin Globulin Ratio 1.4 (0.9-2); BUN Creatinine Ratio 34.5 (10-20); Bilirubin,Total 1.4 mg/dl (0.2-1); Calcium 8.9 mg/dl (8.5-10.1); Creatinine Clr Calc Pharmacy 57.2 ml/min; Est GFR (African American) 83.5 ml/min; Globulin 2.2 gm/dl (2.5-4.0); Magnesium 2.6 mg/dl (1.8-2.4); Potassium 3.5 mmol/L (3.5-5.1); Total Protein 5.2 gm/dl (6.4-8.2)
[2020-11-26] MEDS: METOPROLOL TARTRATE 1 MG/ML VIAL IV SCH ×4 (11:20→23:53)
--- NOTE | 2020-11-26 14:27 | XCELERA ---
[id number]
[2020-11-26 14:44] LABS: BUN Creatinine Ratio 31.7 (10-20); Calcium 8.7 mg/dl (8.5-10.1); Creatinine Clr Calc Pharmacy 56.1 ml/min; Est GFR (African American) 81.4 ml/min; Est GFR (Non-African American) 70.3 ml/min; Potassium 4.1 mmol/L (3.5-5.1)
--- NOTE | 2020-11-26 15:09 | Electrocardiogram Report ---
Test Reason : Blood Pressure : / mmHG Vent. Rate : 115 BPM Atrial Rate : 115 BPM P-R Int : 000 ms QRS Dur : 072 ms QT Int : 410 ms P-R-T Axes : 000 059 027 degrees QTc Int : 567 ms Poor data quality, interpretation may be adversely affected Accelerated Junctional rhythm with Premature supraventricular complexes Low voltage QRS Nonspecific ST and T wave abnormality Abnormal ECG No previous ECGs available Confirmed by Yoshi Meza ([id number]) on 11/26/2020 3:09:34 PM Referred By: [facility] Confirmed By:Yoshi Meza
[2020-11-26] MEDS ORDERED: CEFEPIME CONSULT ACTIVE PRN (15:17)
[2020-11-26] MEDS: CEFEPIME 2,000 MG in SYRINGE 0 ML IV SCH (16:23)
--- NOTE | 2020-11-26 21:23 | Hospitalist Progress Note ---
Date of Service November 26, 2020 Assessment & Plan (1) Sepsis: due to UTI, urine culture growing gram neg rods, follow up blood cultures continue IV fluids, Cefepime check CBC and BMP in the AM (2) Acute UTI: Patient reportedly has had a number of admissions in the [facility] health system for recurrent resistant UTIs, including VRE treated with linezolid. Follow urine culture and sensitivity - gram neg rods continue Cefepime, stop Zosyn and Daptomycin (3) Altered mental status: metabolic encephalopathy on top of Lewy body dementia has dehydration, UTI treat underlying illness and see if his mental status improves (4) Hypernatremia: Sodium 158 upon admission, serum osmolality 333, urine osmolality 416. due to poor oral intake, free water deficit likely in range of a few liters continue D5W but increase rate to 100mL/hr repeat Na this afternoon still high at 157 change Zosyn to Cefepime as Zosyn has some Na in the solution repeat BMP in the AM (5) Atrial fibrillation: On chronic anticoagulation with apixaban, which will briefly be held until is able to take p.o. He may need to be placed on IV heparin and antrum if there is a prolonged interval (6) Lewy body dementia: Lewy body dementia/anxiety with depression- Patient unable to contribute significantly to HPI or review review of systems Holding medications until is more alert and able to take p.o. family interested in palliative care, POLST form completion (7) Acute CHF: Acute CHF with hypoxia resolved after Lasix and Albumin early this AM acute pulmonary edema was due to the 2 liters of fluids in the ED (8) Pulmonary edema: Pulse albumin and furosemide IV as his hyponatremia and CHF/pulmonary edema picture is monitored closely improved, lungs are clearing up, no respiratory distress (9) Elevated troponin: low at 0.05 twice, no concerns for ACS (10) Anxiety with depression: Holding medications until he can take p.o. (11) BPH w urinary obs/LUTS: (12) Parkinson's disease: (13) Recurrent UTI: (14) GERD (gastroesophageal reflux disease): (15) Hypertension: Admission and Anticipated Discharge Date Admission Date: November 25, 2020 Subjective patient is lethargic and confused, cannot get meaningful history or ROS from him this morning or this afternoon reviewed chart, from [facility], gets frequent UTI, h/o VRE, has had a perez since July labs: Na still high, increase D5W to 100mL/hr urine culture with gram negative rods, continue on Cefepime, changed from Zosyn as it contains some sodium and trying to lower sodium talked with his daughter at the bedside this afternoon his dementia has progressed a lot this past year and then after his in June he got really worse had to go into [facility] and has deteriorated further the daughter feels like he is on a downward spiral, will not get better, she questions the utility of return trips to the hospital she and her dad talked about what he would want, he did not want to be a burden his had a stroke when she was 57 and he took care of her as did his children she agreed to palliative consult tomorrow, discussed goals of care, POLST, likely would not want to bring him back to hospital, focus on comfort Review of Systems Review of Systems: Unobtainable due to cognitive status Physical Exam Constitutional: + ill appearing, + altered mental status, + frail appearing and + lethargic; no acute distress ENMT: Mouth: + dry oral mucous membranes Neck: trachea midline, no thyromegaly Respiratory: normal respiratory effort, lungs clear to auscultation Cardiovascular: Rate/Rhythm: + tachycardic and + irregularly irregular Heart Sounds: normal S1 and normal S2; no murmur Vessels: no JVD Extremities: normal capillary refill; no edema Gastrointestinal (Abdomen): normal bowel sounds, soft, nontender, no hepatosplenomegaly Musculoskeletal: no cyanosis or clubbing, extremities motor strength 5/5 Head/Neck/Chest: head atraumatic Skin: no rashes, warm and dry Neurologic: CN's II-XI intact bilaterally, moves all extremities and + confused; no focal motor deficits Psychiatric: Orientation: + not alert and + not oriented x 3 Lymphatic: no cervical or axillary lymphadenopathy Results & Data Results & Data ([facility]) Vital Signs (Past 12 Hours) Vital Signs Temp Pulse Pulse Resp BP BP Pulse Ox 11/26/20 20:28 119 H 111/82 11/26/20 19:00 36.6 C 119 H 18 111/82 98 11/26/20 16:29 130 H 125/84 11/26/20 16:00 124 H 11/26/20 15:35 36.7 C 130 H 19 125/84 97 11/26/20 11:20 123 H 119/70 11/26/20 10:41 36.5 C 123 H 19 119/70 97 Laboratory Results Laboratory Results - last 24 hr 11/25/20 11/25/20 11/25/20 19:03 20:51 23:15 WBC RBC Hgb Hct MCV MCH MCHC RDW Std Deviation RDW Coeff of Sandrine Plt Count MPV Immature Gran % (Auto) Neut % (Auto) Lymph % (Auto) [place] % (Auto) Eos % (Auto) Baso % (Auto) Neut # (Auto) Lymph # (Auto) [place] # (Auto) Eos # (Auto) Baso # (Auto) Immature Gran # (Auto) Platelet Estimate Acanthocytes (Spur) PT INR APTT PTT Ratio Sodium Potassium Chloride Carbon Dioxide Anion Gap BUN Creatinine Est Cr Clr Drug Dosing Est GFR ( Amer) Est GFR (Non-Af Amer) BUN/Creatinine Ratio Glucose Osmolality 333 H Lactate 2.3 H* Calcium Magnesium Total Bilirubin AST ALT Alkaline Phosphatase Troponin I Total Protein Albumin Globulin Albumin/Globulin Ratio Urine Osmolality Nasal Screen MRSA (PCR) Positive A 11/25/20 11/25/20 11/26/20 23:25 23:35 05:26 WBC 8.44 RBC 3.40 L Hgb 10.6 L Hct 34.5 L MCV 101.5 H MCH 31.2 MCHC 30.7 L RDW Std Deviation 60.5 H RDW Coeff of Sandrine 16.4 H Plt Count 102 L MPV 13.4 H Immature Gran % (Auto) 0.1 Neut % (Auto) 91.5 Lymph % (Auto) 5.2 [place] % (Auto) 2.7 Eos % (Auto) 0.4 Baso % (Auto) 0.1 Neut # (Auto) 7.72 H Lymph # (Auto) 0.44 L [place] # (Auto) 0.23 Eos # (Auto) 0.03 Baso # (Auto) 0.01 Immature Gran # (Auto) 0.01 Platelet Estimate Decreased L Acanthocytes (Spur) 1+ PT INR APTT PTT Ratio Sodium Potassium Chloride Carbon Dioxide Anion Gap BUN Creatinine Est Cr Clr Drug Dosing Est GFR ( Amer) Est GFR (Non-Af Amer) BUN/Creatinine Ratio Glucose Osmolality Lactate Calcium Magnesium Total Bilirubin AST ALT Alkaline Phosphatase Troponin I 0.052 H* Total Protein Albumin Globulin Albumin/Globulin Ratio Urine Osmolality 416 L Nasal Screen MRSA (PCR) 11/26/20 11/26/20 11/26/20 05:26 05:26 12:56 WBC RBC Hgb Hct MCV MCH MCHC RDW Std Deviation RDW Coeff of Sandrine Plt Count MPV Immature Gran % (Auto) Neut % (Auto) Lymph % (Auto) [place] % (Auto) Eos % (Auto) Baso % (Auto) Neut # (Auto) Lymph # (Auto) [place] # (Auto) Eos # (Auto) Baso # (Auto) Immature Gran # (Auto) Platelet Estimate Acanthocytes (Spur) PT 13.2 H INR 1.3 H APTT 41.0 H PTT Ratio 1.6 Sodium 156 H* 158 H* Potassium 3.5 D 4.1 D Chloride 125 H 125 H Carbon Dioxide 29 30 Anion Gap 2.0 L 3.0 BUN 34 H 32 H Creatinine 0.98 1.00 Est Cr Clr Drug Dosing 57.2 56.1 Est GFR ( Amer) 83.5 81.4 Est GFR (Non-Af Amer) 72.0 70.3 BUN/Creatinine Ratio 34.5 H 31.7 H Glucose 113 H 106 H Osmolality Lactate Calcium 8.9 8.7 Magnesium 2.6 H Total Bilirubin 1.4 H D AST 40 H ALT 35 Alkaline Phosphatase 58 Troponin I Total Protein 5.2 L Albumin 3.0 L Globulin 2.2 L Albumin/Globulin Ratio 1.4 Urine Osmolality Nasal Screen MRSA (PCR) Medications Administered Current Inpatient Medications Acetaminophen (Acetaminophen 1000 Mg/100 Ml Iv) 1,000 mg IV Q8H PRN PRN Reason: Pain or Fever Stop: 11/28/20 23:11 Dextrose (D5w) 1,000 mls @ 100 mls/hr IV .Q10H SUSAN Stop: 12/26/20 02:44 Last Admin: 11/26/20 16:23 Dose: 100 mls/hr Documented by: Cefepime HCl 2,000 mg/ Syringe 20 mls @ 5 mls/min IV Q12H SUSAN Stop: 12/06/20 15:59 Last Admin: 11/26/20 16:23 Dose: 5 mls/min Documented by: Metoprolol Tartrate (Metoprolol Tartrate 1 Mg/Ml Vial) 5 mg IV Q4 SUSAN Stop: 12/26/20 11:59 Last Admin: 11/26/20 20:28 Dose: 5 mg Documented by: Miscellaneous Information (Cefepime Consult Active) 1 ea N/A UD PRN PRN Reason: Consult Stop: 12/26/20 15:16 Ondansetron HCl (Ondansetron Inj 2 Mg/Ml 2 Ml Vial) 4 mg IV Q6H PRN PRN Reason: Nausea Stop: 12/25/20 23:11 PG Care Time/CCT Total # of Minutes Spent Total Time Spent with Patient: Total time spent is greater than 50% in coordination of care (as documented) at patient's floor/unit and/or counseling patient: Coding Level of Care Code 87884 Subseq Hosp Care Lvl 3 Diagnoses Sepsis A41.9; R65.20; J96.01 Acute respiratory failure type: with hypoxia Sepsis acute organ dysfunction status: with acute organ dysfunction Sepsis type: sepsis due to unspecified organism Severe sepsis acute organ dysfunction type: acute respiratory failure Severe sepsis shock status: unspecified Acute UTI N39.0 Altered mental status R41.0 Altered mental status type: disorientation Hypernatremia E87.0 Atrial fibrillation I48.91 Lewy body dementia G31.83; F02.80 Acute CHF I50.9 Pulmonary edema J81.0 Chronicity: acute Elevated troponin R77.8 Anxiety with depression F41.8 BPH w urinary obs/LUTS N40.1; N13.8 Parkinson's disease G20 Recurrent UTI N39.0 GERD (gastroesophageal reflux disease) K21.9 Hypertension I10 (1) Altered mental status Altered mental status type: disorientation Qualified Code(s): R41.0 - Dis orientation, unspecified (2) Pulmonary edema Chronicity: acute Qualified Code(s): J81.0 - Acute pulmonary edema (3) Sepsis Acute respiratory failure type: with hypoxia Sepsis acute organ dysfunction status: with acute organ dysfunction Sepsis type: sepsis due to unspecified organism Severe sepsis acute organ dysfunction type: acute respiratory failure Severe sepsis shock status: unspecified Qualified Code(s): A41.9 - Sepsis, unspecified organism; R65.20 - Severe sepsis without septic shock; J96.01 - Acute respiratory failure with hypoxia
[2020-11-27] MEDS: DEXTROSE 5% 1,000 ML IV SCH ×3 (02:27→22:11)
[2020-11-27] MEDS: CEFEPIME 2,000 MG in SYRINGE 0 ML IV SCH (03:49)
[2020-11-27] MEDS: METOPROLOL TARTRATE 1 MG/ML VIAL IV SCH ×5 (03:53→21:28)
[2020-11-27 07:48] LABS: Acanthocytes 2+; Eosinophils # (auto) 0.14 K/uL (0-0.5); Eosinophils % (auto) 1.9 %; Hematocrit (blood only) 37.9 % (42-52); Hemoglobin 11.7 g/dL (14.0-18.0); Immature Granulocytes # (auto) 0.02 K/uL (0.00-0.02); Immature Granulocytes % (auto) 0.3 %; Lymphocytes # (auto) 0.45 K/uL (1.2-3.4); Mean Corpuscular Hgb Conc 30.9 g/dL (32-36); Mean Corpuscular Volume 100.5 fL (80-100); Mean Platelet Volume 13.2 fL (7.4-10.4); Neutrophils # (auto) 6.56 K/uL (1.4-6.5); Neutrophils % (auto) 87.8 %; Platelet Count 110 K/uL (130-400); Platelet Estimate Decreased (Normal); RDW Coefficient of Variation 16.1 % (11.5-14.5); RDW Standard Deviation 58.9 fL (36.4-46.3); Red Blood Count 3.77 M/uL (4.7-6.1); White Blood Count 7.47 K/uL (4.8-10.8)
[2020-11-27 08:10] LABS: Albumin Level 2.6 gm/dl (3.4-5.0); BUN Creatinine Ratio 35.7 (10-20); Calcium 8.8 mg/dl (8.5-10.1); Creatinine Clr Calc Pharmacy 65.9 ml/min; Est GFR (African American) 94.7 ml/min; Est GFR (Non-African American) 81.7 ml/min; Magnesium 2.4 mg/dl (1.8-2.4); Potassium 3.5 mmol/L (3.5-5.1)
[2020-11-27 08:13] LABS: Albumin Globulin Ratio 0.9 (0.9-2); Bilirubin,Total 1.2 mg/dl (0.2-1); Globulin 2.8 gm/dl (2.5-4.0); Total Protein 5.4 gm/dl (6.4-8.2)
[2020-11-27] MEDS: ERTAPENEM SODIUM 1,000 MG in SODIUM CHLORIDE 0.9% 50 ML IV SCH (12:03)
--- NOTE | 2020-11-27 12:13 | Hospitalist Progress Note ---
Date of Service November 27, 2020 Assessment & Plan (1) Sepsis: due to UTI, urine culture growing Klebsiella ESBL and Providencia change to Ertapenem 1000mg IV daily will need to treat for 10-14 days due to complicated UTI with perez continue IV fluids, Na coming down (2) Acute UTI: Patient reportedly has had a number of admissions in the [facility] system for recurrent resistant UTIs, including VRE treated with linezolid. as above, urine culture with Klebsiella ESBL and Providencia Ertapenem 1gm IV daily (3) Altered mental status: metabolic encephalopathy on top of Lewy body dementia has dehydration, UTI more alert today, treat UTI and continue D5W, Na down to 151 consult speech therapy to see if we can feed him safely (4) Hypernatremia: Sodium 158 upon admission, serum osmolality 333, urine osmolality 416. due to poor oral intake, free water deficit likely in range of a few liters continue D5W but increase rate to 100mL/hr Na down to 151, Cl 121 repeat BMP in the AM (5) Atrial fibrillation: On chronic anticoagulation with apixaban try to resume tomorrow if he is safe to take PO (6) Lewy body dementia: Lewy body dementia/anxiety with depression- Patient unable to contribute significantly to HPI or review of systems Holding medications until is more alert and able to take p.o. family interested in palliative care, POLST form completion (7) Acute CHF: Acute CHF with hypoxia resolved after Lasix and Albumin early this AM acute pulmonary edema was due to the 2 liters of fluids in the E (8) Pulmonary edema: Pulse albumin and furosemide IV as his hyponatremia and CHF/pulmonary edema picture is monitored closely improved, lungs are clearing up, no respiratory distress (9) Elevated troponin: low at 0.05 twice, no concerns for ACS (10) Anxiety with depression: Holding medications until he can take p.o. (11) BPH w urinary obs/LUTS: (12) Parkinson's disease: (13) Recurrent UTI: (14) GERD (gastroesophageal reflux disease): (15) Hypertension: Admission and Anticipated Discharge Date Admission Date: November 25, 2020 Subjective patient more alert today, off of oxygen, still not answering questions clearly, just reaching out to me will ask speech to evaluate to see if he can eat/drink safely reviewed labs, Hb 11.7, Na down 151, K 3.5, Cr 0.85 urine culture with Klebsiella ESBL and Providencia, sensitive to Ertapenem, will change spoke with his daughter Mariana over the phone, she will be here tomorrow, coming home from [place] she says she is optimistic but also realistic she is hopeful that he can follow up with urology in [place] for embolization of prostate and then get perez out once prostate shrinks she is requesting urology consult here, placed the consult will get palliative consult today, discuss goals of care with both daughters Review of Systems Review of Systems: Unobtainable due to cognitive status Physical Exam Constitutional: + altered mental status and + frail appearing; no acute distress ENMT: Mouth: + dry oral mucous membranes Neck: trachea midline, no thyromegaly Respiratory: normal respiratory effort, lungs clear to auscultation Cardiovascular: Rate/Rhythm: + tachycardic and + irregularly irregular Heart Sounds: normal S1 and normal S2; no murmur Vessels: no JVD Extremities: normal capillary refill; no edema Gastrointestinal (Abdomen): normal bowel sounds, soft, nontender, no hepatosplenomegaly Musculoskeletal: no cyanosis or clubbing, extremities motor strength 5/5 Head/Neck/Chest: head atraumatic Skin: no rashes, warm and dry Neurologic: CN's II-XI intact bilaterally, moves all extremities and + confused; no focal motor deficits Psychiatric: Orientation: alert, oriented to person and cooperative; + not oriented to place and + not oriented to time Lymphatic: no cervical or axillary lymphadenopathy Results & Data Results & Data ([facility]) Vital Signs (Past 12 Hours) Vital Signs Temp Pulse Pulse Resp BP BP Pulse Ox 11/27/20 12:05 117 H 11/27/20 10:37 36.7 C 117 H 20 113/80 96 11/27/20 08:00 137 H 11/27/20 07:51 36.8 C 136 H 120 H 18 117/76 93 11/27/20 03:53 121 H 109/68 11/27/20 03:50 36.5 C 121 H 20 109/68 97 Laboratory Results Laboratory Results - last 24 hr 11/26/20 11/27/20 11/27/20 12:56 07:11 07:11 WBC 7.47 RBC 3.77 L Hgb 11.7 L Hct 37.9 L MCV 100.5 H MCH 31.0 MCHC 30.9 L RDW Std Deviation 58.9 H RDW Coeff of Sandrine 16.1 H Plt Count 110 L MPV 13.2 H Immature Gran % (Auto) 0.3 Neut % (Auto) 87.8 Lymph % (Auto) 6.0 [place] % (Auto) 4.0 Eos % (Auto) 1.9 Baso % (Auto) 0.0 Neut # (Auto) 6.56 H Lymph # (Auto) 0.45 L [place] # (Auto) 0.30 Eos # (Auto) 0.14 Baso # (Auto) 0.00 Immature Gran # (Auto) 0.02 Platelet Estimate Decreased L Acanthocytes (Spur) 2+ Sodium 158 H* 151 H Potassium 4.1 D 3.5 Chloride 125 H 121 H Carbon Dioxide 30 27 Anion Gap 3.0 3.0 BUN 32 H 30 H Creatinine 1.00 0.85 Est Cr Clr Drug Dosing 56.1 65.9 Est GFR ( Amer) 81.4 94.7 Est GFR (Non-Af Amer) 70.3 81.7 BUN/Creatinine Ratio 31.7 H 35.7 H Glucose 106 H 93 Calcium 8.7 8.8 Magnesium 2.4 Total Bilirubin 1.2 H AST 47 H ALT 37 Alkaline Phosphatase 67 Total Protein 5.4 L Albumin 2.6 L Globulin 2.8 Albumin/Globulin Ratio 0.9 Microbiology 11/25/20 Unknown Urine,Clean Catch Urine Culture - Preliminary Providencia stuartii Klebsiella pneumoniae ESBL 11/25/20 19:04 Blood Aerobic Blood Culture - Preliminary No growth in Aerobic bottle after 24 hours. 11/25/20 19:04 Blood Anaerobic Blood Culture - Final 11/25/20 19:03 Blood Aerobic Blood Culture - Preliminary No growth in Aerobic bottle after 24 hours. 11/25/20 19:03 Blood Anaerobic Blood Culture - Preliminary No growth in Anaerobic bottle after 24 hours. Medications Administered Current Inpatient Medications Acetaminophen (Acetaminophen 1000 Mg/100 Ml Iv) 1,000 mg IV Q8H PRN PRN Reason: Pain or Fever Stop: 11/28/20 23:11 Dextrose (D5w) 1,000 mls @ 100 mls/hr IV .Q10H SUSAN Stop: 12/26/20 02:44 Last Admin: 11/27/20 12:03 Dose: 100 mls/hr Documented by: Ertapenem 1,000 mg/ Sodium (Chloride) 60 mls @ 100 mls/hr IV Q24H SUSAN; Protocol Stop: 12/07/20 11:59 Last Admin: 11/27/20 12:03 Dose: 100 mls/hr Documented by: Metoprolol Tartrate (Metoprolol Tartrate 1 Mg/Ml Vial) 5 mg IV Q4 SUSAN Stop: 12/26/20 11:59 Last Admin: 11/27/20 12:05 Dose: 5 mg Documented by: Ondansetron HCl (Ondansetron Inj 2 Mg/Ml 2 Ml Vial) 4 mg IV Q6H PRN PRN Reason: Nausea Stop: 12/25/20 23:11 PG Care Time/CCT Total # of Minutes Spent Total Time Spent with Patient: Total time spent is greater than 50% in coordination of care (as documented) at patient's floor/unit and/or counseling patient: Coding Level of Care Code 89991 Subseq Hosp Care Lvl 3 Diagnoses Sepsis A41.9; R65.20; J96.01 Acute respiratory failure type: with hypoxia Sepsis acute organ dysfunction status: with acute organ dysfunction Sepsis type: sepsis due to unspecified organism Severe sepsis acute organ dysfunction type: acute respiratory failure Severe sepsis shock status: unspecified Acute UTI N39.0 Altered mental status R41.0 Altered mental status type: disorientation Hypernatremia E87.0 Atrial fibrillation I48.91 Lewy body dementia G31.83; F02.80 Acute CHF I50.9 Pulmonary edema J81.0 Chronicity: acute Elevated troponin R77.8 Anxiety with depression F41.8 BPH w urinary obs/LUTS N40.1; N13.8 Parkinson's disease G20 Recurrent UTI N39.0 GERD (gastroesophageal reflux disease) K21.9 Hypertension I10 (1) Sepsis Acute respiratory failure type: with hypoxia Sepsis acute organ dysfunction status: with acute organ dysfunction Sepsis type: sepsis due to unspecified organism Severe sepsis acute organ dysfunction type: acute respiratory failure Severe sepsis shock status: unspecified Qualified Code(s): A41.9 - Sepsis, unspecified organism; R65.20 - Severe sepsis without septic shock; J96.01 - Acute respiratory failure with hypoxia (2) Altered mental status Altered mental status type: disorientation Qualified Code(s): R41.0 - Disorientation, unspecified (3) Pulmonary edema Chronicity: acute Qualified Code(s): J81.0 - Acute pulmonary edema
--- NOTE | 2020-11-27 12:44 | Urology Consultation ---
Date of Consultation November 27, 2020 Assessment & Plan (1) BPH w urinary obs/LUTS: (2) Chronic indwelling Pisano catheter: (3) Acute UTI: 80 year old male with multiple comorbidities admitted for altered mental status, acute UTI, hypernatremia and respiratory failure. - Hospital course and chart reviewed as well as past medical history, HPI and ROS unobtainable due to cognitive status - Case reviewed with Dr. Farnsworth, liaison engineer urologist - Afebrile, lab work reviewed - creatinine and WBC within normal limits - Urine culture with Klebsiella ESBL and Providencia, BCx no growth to date - continue antibiotics per primary team - Recommend ID consult given recurrent resistant infections - Per home medications, patient is on Tamsulosin and Finasteride which is maximum medical therapy for prostate - recommend continue - In discussion with Dr. Lai, patient is scheduled for consult with urologist at [facility] for consideration of embolization of prostate - Recommend continue with consultation at [facility] depending on goals of care, he is pending palliative care consult - No acute intervention indicated at this time - Maintain Pisano catheter, will try to find out from [facility] when last catheter change occurred - Check a PSA - Will follow peripherally History of Present Illness Reason for Consultation: BPH, Pisano since July, recurrent UTI Requesting Physician: Dr. Lai Attending Physician: Mauricio Lai, History of Present Illness This is an 80 year old male with past medical history significant for Lewy body dementia, Parkinson's disease, atrial fibrillation on chronic anticoagulation, CHF, BPH with obstruction, chronic indwelling Pisano since July and recurrent UTI admitted with altered mental status, hypernatremia, suspected UTI, and respiratory failure. Patient presented to [facility] ED on 11/25/[address] [facility] with worsening altered mental status, weakness, lethargy, and hypernatremia. Afebrile on arrival. Lab work showed sodium 158, lactate 4.2 and elevated troponin. No leukocytosis, Hgb 12.1. Creatinine 1.05. UA suggestive of infection, urine and blood cultures obtained. Chest x-ray showed evidence of congestive heart failure and interstitial edema. ED course included IV fluids, Zosyn, Daptomycin. Lasix and Albumin. He was admitted to hospital medicine service for AMS, hypernatremia, acute UTI, and acute CHF. He was treated with Cefepime initially. Urine culture grew out Providencia stuartii and Klebsiella pneumoniae ESBL, so he was transitioned to IV Ertapenem today. Per admission notes, patient has had multiple hospital admissions at [facility] for recurrent resistant UTI, h/o VRE treated with Linezolid. He has BPH with obstruction, history of urinary retention with chronic indwelling Pisano since July 2020. He is on Tamsulosin and Finasteride per home medications. Our service is consulted for BPH, Pisano, and recurrent UTI. Chart review: Afebrile Creatinine 0.85 WBC 7.47 Hgb 11.7 UC&S - Providencia stuartii and Klebsiella pneumoniae ESBL BCx - no growth x 24 hours On IV Ertapenem VS - BP 113/80, HR 117, Resp 20, Temp 36.7, O2 sat 96% RA Patient seen and examined at bedside. He is sleeping on arrival, arouses easily to his name. Appears comfortable. Unable to obtain history or ROS due to cognitive status. Allergies Allergy/AdvReac Type Severity Reaction Status Date / Time dorzolamide Allergy Unknown ON Verified 11/25/20 19:07 [facility] haloperidol [From Haldol] Allergy Unknown ON Verified 11/25/20 19:07 [facility] olanzapine [From Zyprexa] Allergy Unknown ON Verified 11/25/20 19:07 [facility] Home Medications Medication Instructions Recorded Confirmed Type acetaminophen [Tylenol] 650 mg PO Q6H PRN MDD 3 GRAMS/24 11/25/20 11/25/20 History HOURS apixaban [Eliquis] 5 mg PO BID 11/25/20 11/25/20 History bacitracin 1 applic TOPICAL TID 11/25/20 11/25/20 History bisacodyl 5 mg PO Q24H PRN 11/25/20 11/25/20 History citalopram [Celexa] 10 mg PO QAM 11/25/20 11/25/20 History diltiazem HCl 30 mg PO TID 11/25/20 11/25/20 History felodipine 10 mg PO DAILY 11/25/20 11/25/20 History finasteride 5 mg PO DAILY 11/25/20 11/25/20 History lorazepam [Ativan] 0.5 mg PO BID 11/25/20 11/25/20 History memantine 10 mg PO BID 11/25/20 11/25/20 History metoprolol tartrate 25 mg PO BID 11/25/20 11/25/20 History pantoprazole 40 mg PO DAILY 11/25/20 11/25/20 History polyethylene glycol 3350 [Miralax] 17 g PO QAM 11/25/20 11/25/20 History quetiapine [Seroquel] 100 mg PO HS 11/25/20 11/25/20 History quetiapine [Seroquel] See Rx Instructions .ROUTE .COMPLEX 11/25/20 11/25/20 History rivastigmine tartrate 1.5 mg PO BID 11/25/20 11/25/20 History sennosides [senna] 17.2 mg PO HS 11/25/20 11/25/20 History sulfamethoxazole-trimethoprim 1 tab PO BID 11/25/20 11/25/20 History [Bactrim DS] tamsulosin [Flomax] 0.4 mg PO DAILY 11/25/20 11/25/20 History Patient History Medical History Anxiety with depression Atrial fibrillation BPH w urinary obs/LUTS GERD (gastroesophageal reflux disease) Hypertension Lewy body dementia Parkinson's disease Recurrent UTI Social History Smoking Status: Unknown if ever smoked Hx Alcohol Use: No Hx Substance Use: No Preferred Language: Guatemalan Communication Ability: Impaired Android Architect Required: No Beliefs That Will Affect Care: None marital status: / Current Living Situation: Personal Care Facility Other Information That Helps Us Care for You: No Feels Safe at Home: Declines to Answer Assistive Devices: Oxygen - Continuous Assistive Devices Comment: Chronic Pisano catheter. Review of Systems Review of Systems: Unobtainable due to cognitive status Physical Exam Constitutional: + altered mental status, + frail appearing and comfortable; no acute distress Respiratory: normal respiratory effort; no respiratory distress and no labored breathing Cardiovascular: Rate/Rhythm: + tachycardic Extremities: no pedal edema Gastrointestinal (Abdomen): Inspection/Auscultation: abdomen normal to inspection; abdomen not distended Percussion/Palpation: abdomen soft; abdomen nontender Musculoskeletal: Head/Neck/Chest: head atraumatic b/l lower extremities appear contracted Neurologic: moves all extremities, awake and + confused Psychiatric: Orientation: alert and oriented to person Genitourinary: Pisano intact, patent, draining yellow urine Results & Data ([facility]) Vital Signs (Past 12 Hours) Vital Signs Temp Pulse Pulse Resp BP BP Pulse Ox 11/27/20 12:05 117 H 11/27/20 10:37 36.7 C 117 H 20 113/80 96 11/27/20 08:00 137 H 11/27/20 07:51 36.8 C 136 H 120 H 18 117/76 93 11/27/20 03:53 121 H 109/68 11/27/20 03:50 36.5 C 121 H 20 109/68 97 PG Care Time/CCT Total # of Minutes Spent Total Time Spent with Patient: Total time spent is greater than 50% in coordination of care (as documented) at patient's floor/unit and/or counseling patient: Coding Level of Care Code 68071 Initial Inpt Care Lvl 3 Diagnoses BPH w urinary obs/LUTS N40.1; N13.8 Chronic indwelling Pisano catheter Z97.8 Acute UTI N39.0
[2020-11-28] MEDS: METOPROLOL TARTRATE 1 MG/ML VIAL IV SCH ×5 (00:43→17:00)
[2020-11-28] MEDS: DEXTROSE 5% 1,000 ML IV SCH ×2 (07:59→17:23)
[2020-11-28 08:14] LABS: Albumin Level 2.2 gm/dl (3.4-5.0); Calcium 8.6 mg/dl (8.5-10.1); Creatinine Clr Calc Pharmacy 80.1 ml/min; Est GFR (African American) 102.6 ml/min; Est GFR (Non-African American) 88.5 ml/min; Magnesium 2.4 mg/dl (1.8-2.4); Potassium 3.8 mmol/L (3.5-5.1)
[2020-11-28 08:17] LABS: Albumin Globulin Ratio 0.8 (0.9-2); Globulin 2.8 gm/dl (2.5-4.0)
[2020-11-28 09:00] LABS: Hematocrit (blood only) 38.3 % (42-52); Hemoglobin 12.1 g/dL (14.0-18.0); Mean Corpuscular Hemoglobin 31.6 pg (25-34); Mean Corpuscular Hgb Conc 31.6 g/dL (32-36); RDW Coefficient of Variation 15.8 % (11.5-14.5); RDW Standard Deviation 57.6 fL (36.4-46.3); Red Blood Count 3.83 M/uL (4.7-6.1); White Blood Count 6.88 K/uL (4.8-10.8)
[2020-11-28 09:03] LABS: Acanthocytes 1+; Echinocytes 1+; Eosinophils # (auto) 0.25 K/uL (0-0.5); Eosinophils % (auto) 3.6 %; Immature Granulocytes # (auto) 0.04 K/uL (0.00-0.02); Immature Granulocytes % (auto) 0.6 %; Lymphocytes # (auto) 0.59 K/uL (1.2-3.4); Lymphocytes % (auto) 8.6 %; Mean Platelet Volume 12.7 fL (7.4-10.4); Monocytes # (auto) 0.37 K/uL (0.11-0.59); Monocytes % (auto) 5.4 %; Neutrophils # (auto) 5.63 K/uL (1.4-6.5); Neutrophils % (auto) 81.8 %; Platelet Count 107 K/uL (130-400); Platelet Estimate Decreased (Normal)
--- NOTE | 2020-11-28 09:12 | Hospitalist Progress Note ---
Date of Service November 28, 2020 Assessment & Plan (1) Sepsis: due to UTI, urine culture growing Klebsiella ESBL and Providencia continue Ertapenem 1000mg IV daily will need to treat for 14 days due to complicated UTI with perez continue IV fluids, Na coming down to 146 (2) Acute UTI: Patient reportedly has had a number of admissions in the [facility] health system for recurrent resistant UTIs, including VRE treated with linezolid. as above, urine culture with Klebsiella ESBL and Providencia Ertapenem 1gm IV daily (3) Altered mental status: metabolic encephalopathy on top of Lewy body dementia has dehydration, UTI more alert today and conversive, eating some food treat UTI and continue D5W, Na down to 146 (4) Hypernatremia: Sodium 158 upon admission, serum osmolality 333, urine osmolality 416. due to poor oral intake, free water deficit likely in range of a few liters continue D5W at 100mL/hr Na down to 146 repeat BMP in the AM, can likely stop fluids tomorrow and see if he can maintain hydration by mouth (5) Atrial fibrillation: On chronic anticoagulation with apixaban, resume today resume Diltiazem 30mg TID and Lopressor 25mg BID stop Lopressor IV this afternoon (6) Lewy body dementia: Lewy body dementia/anxiety with depression- Patient unable to contribute significantly to HPI or review of systems Holding medications until is more alert and able to take p.o. family interested in palliative care, POLST form completion daughter Kelly is more interested in palliative daughter Mariana is mor optimistic, wants him to go to [place] for prostate ablation, maybe get perez out and prevent these UTI's (7) Elevated troponin: low at 0.05 twice, no concerns for ACS (8) Anxiety with depression: Holding medications until he can take p.o. (9) BPH w urinary obs/LUTS: (10) Parkinson's disease: (11) Recurrent UTI: (12) GERD (gastroesophageal reflux disease): (13) Hypertension: Admission and Anticipated Discharge Date Admission Date: November 25, 2020 Subjective patient more alert and conversive today, but still confused he ate his yogurt and applesauce, required feeding Na down to 146, Cr 0.7, WBC normal, hb stable tolerating Ertapenem will update his daughter today, she plans to visit at the bedside appreciate urology consult, recommend follow up with [facility] for possible prostate ablation will exchange catheter while here HR elevated, will resume Diltiazem 30mg TID and Lopressor 25mg BID, stop the IV Lopressor this afternoon Review of Systems Review of Systems: Unobtainable due to cognitive status Physical Exam Constitutional: well developed, + frail appearing, cooperative and comfortable; no acute distress Neck: trachea midline, no thyromegaly Respiratory: normal respiratory effort, lungs clear to auscultation Cardiovascular: Rate/Rhythm: + tachycardic and + irregularly irregular Heart Sounds: normal S1 and normal S2; no murmur Vessels: no JVD Extremities: normal capillary refill; no edema Gastrointestinal (Abdomen): normal bowel sounds, soft, nontender, no hepatosplenomegaly Musculoskeletal: no cyanosis or clubbing, extremities motor strength 5/5 Head/Neck/Chest: head atraumatic Skin: no rashes, warm and dry Neurologic: CN's II-XI intact bilaterally, moves all extremities and + confused; no focal motor deficits Psychiatric: Orientation: alert, oriented to person and cooperative; + not oriented to place and + not oriented to time Lymphatic: no cervical or axillary lymphadenopathy Results & Data Results & Data ([facility]) Vital Signs (Past 12 Hours) Vital Signs Temp Pulse Pulse Pulse Resp BP Pulse Ox 11/28/20 08:22 127 H 11/28/20 07:49 36.5 C 104 H 16 115/81 96 11/28/20 04:10 36.5 C 115 H 18 138/83 95 11/27/20 22:54 36.7 C 108 H 18 104/66 96 Laboratory Results Laboratory Results - last 24 hr 11/28/20 11/28/20 07:24 07:24 WBC 6.88 RBC 3.83 L Hgb 12.1 L Hct 38.3 L MCV 100.0 MCH 31.6 MCHC 31.6 L RDW Std Deviation 57.6 H RDW Coeff of Sandrine 15.8 H Plt Count 107 L MPV 12.7 H Immature Gran % (Auto) 0.6 Neut % (Auto) 81.8 Lymph % (Auto) 8.6 Avery % (Auto) 5.4 Eos % (Auto) 3.6 Baso % (Auto) 0.0 Neut # (Auto) 5.63 Lymph # (Auto) 0.59 L Avery # (Auto) 0.37 Eos # (Auto) 0.25 Baso # (Auto) 0.00 Immature Gran # (Auto) 0.04 H Platelet Estimate Decreased L Echinocytes 1+ Acanthocytes (Spur) 1+ Sodium 146 H Potassium 3.8 Chloride 118 H Carbon Dioxide 26 Anion Gap 2.0 L BUN 29 H Creatinine 0.70 Est Cr Clr Drug Dosing 80.1 Est GFR ( Amer) 102.6 Est GFR (Non-Af Amer) 88.5 BUN/Creatinine Ratio 41.0 H Glucose 85 Calcium 8.6 Magnesium 2.4 Total Bilirubin 1.0 AST 46 H ALT 36 Alkaline Phosphatase 63 Total Protein 5.0 L Albumin 2.2 L Globulin 2.8 Albumin/Globulin Ratio 0.8 L Medications Administered Current Inpatient Medications Acetaminophen (Acetaminophen 1000 Mg/100 Ml Iv) 1,000 mg IV Q8H PRN PRN Reason: Pain or Fever Stop: 11/28/20 23:11 Apixaban (Apixaban 5 Mg Tablet) 5 mg PO BID [facility] Stop: 12/28/20 20:59 Diltiazem HCl (Diltiazem Hcl 30 Mg Tab) 30 mg PO TID [facility] Stop: 12/28/20 13:59 Finasteride (Finasteride 5 Mg Tab) 5 mg PO DAILY [facility] Stop: 12/29/20 08:59 Dextrose (D5w) 1,000 mls @ 100 mls/hr IV .Q10H [facility] Stop: 12/26/20 02:44 Last Admin: 11/28/20 07:59 Dose: 100 mls/hr Documented by: Ertapenem 1,000 mg/ Sodium (Chloride) 60 mls @ 100 mls/hr IV Q24H [facility]; Protocol Stop: 12/07/20 11:59 Last Infusion: 11/27/20 12:49 Dose: Infused Documented by: Metoprolol Tartrate (Metoprolol Tartrate 1 Mg/Ml Vial) 5 mg IV Q4 [facility] Stop: 11/28/20 17:00 Last Admin: 11/28/20 08:22 Dose: 5 mg Documented by: Metoprolol Tartrate (Metoprolol Tartrate 25 Mg Tab) 25 mg PO BID [facility] Stop: 12/28/20 20:59 Ondansetron HCl (Ondansetron Inj 2 Mg/Ml 2 Ml Vial) 4 mg IV Q6H PRN PRN Reason: Nausea Stop: 12/25/20 23:11 Pantoprazole Sodium (Pantoprazole 40 Mg Tab) 40 mg PO DAILY [facility] Stop: 12/29/20 08:59 Tamsulosin HCl (Tamsulosin Hcl 0.4 Mg Cap) 0.4 mg PO DAILY [facility] Stop: 12/29/20 08:59 PG Care Time/CCT Total # of Minutes Spent Total Time Spent with Patient: Total time spent is greater than 50% in coordination of care (as documented) at patient's floor/unit and/or counseling patient: Coding Level of Care Code 19268 Subseq Hosp Care Lvl 3 Diagnoses Sepsis A41.9; R65.20; J96.01 Acute respiratory failure type: with hypoxia Sepsis acute organ dysfunction status: with acute organ dysfunction Sepsis type: sepsis due to unspecified organism Severe sepsis acute organ dysfunction type: acute respiratory failure Severe sepsis shock status: unspecified Acute UTI N39.0 Altered mental status R41.0 Altered mental status type: disorientation Hypernatremia E87.0 Atrial fibrillation I48.91 Lewy body dementia G31.83; F02.80 Elevated troponin R77.8 Anxiety with depression F41.8 BPH w urinary obs/LUTS N40.1; N13.8 Parkinson's disease G20 Recurrent UTI N39.0 GERD (gastroesophageal reflux disease) K21.9 Hypertension I10 (1) Sepsis Acute respiratory failure type: with hypoxia Sepsis acute organ dysfunction status: with acute organ dysfunction Sepsis type: sepsis due to unspecified organism Severe sepsis acute organ dysfunction type: acute respiratory failure Severe sepsis shock status: unspecified Qualified Code(s): A41.9 - Sepsis, unspecified organism; R65.20 - Severe sepsis without septic shock; J96.01 - Acute respiratory failure with hypoxia (2) Altered mental status Altered mental status type: disorientation Qualified Code(s): R41.0 - Disorientation, unspecified
[2020-11-28] MEDS: ERTAPENEM SODIUM 1,000 MG in SODIUM CHLORIDE 0.9% 50 ML IV SCH (12:26)
[2020-11-28] MEDS: dilTIAZem HCL 30 MG TAB PO SCH ×2 (14:23→21:56)
[2020-11-28] MEDS: APIXABAN 5 MG TABLET PO SCH (21:39)
[2020-11-28] MEDS: METOPROLOL TARTRATE 25 MG TAB PO SCH (21:56)
[2020-11-29] MEDS: DEXTROSE 5% 1,000 ML IV SCH ×2 (02:42→08:38)
[2020-11-29] MEDS: TAMSULOSIN HCL 0.4 MG CAP PO SCH (08:37)
[2020-11-29] MEDS: PANTOprazole 40 MG TAB PO SCH (08:37)
[2020-11-29] MEDS: dilTIAZem HCL 30 MG TAB PO SCH ×3 (08:37→22:26)
[2020-11-29] MEDS: METOPROLOL TARTRATE 25 MG TAB PO SCH ×2 (08:37→20:28)
[2020-11-29] MEDS: FINASTERIDE 5 MG TAB PO SCH (08:37)
[2020-11-29] MEDS: APIXABAN 5 MG TABLET PO SCH ×2 (08:37→20:04)
[2020-11-29 09:05] LABS: Hematocrit (blood only) 34.3 % (42-52); Hemoglobin 11.1 g/dL (14.0-18.0); Mean Corpuscular Hemoglobin 30.8 pg (25-34); Mean Corpuscular Hgb Conc 32.4 g/dL (32-36); Mean Corpuscular Volume 95.3 fL (80-100); Mean Platelet Volume 12.9 fL (7.4-10.4); Platelet Count 111 K/uL (130-400); RDW Coefficient of Variation 15.7 % (11.5-14.5); RDW Standard Deviation 54.3 fL (36.4-46.3)
[2020-11-29 09:34] LABS: BUN Creatinine Ratio 44.5 (10-20); Calcium 8.1 mg/dl (8.5-10.1); Creatinine Clr Calc Pharmacy 86.2 ml/min; Est GFR (African American) 105.7 ml/min; Est GFR (Non-African American) 91.2 ml/min; Magnesium 2.1 mg/dl (1.8-2.4)
[2020-11-29] MEDS: METOPROLOL TARTRATE 1 MG/ML VIAL IV SCH ×3 (12:15→20:28)
[2020-11-29] MEDS: ERTAPENEM SODIUM 1,000 MG in SODIUM CHLORIDE 0.9% 50 ML IV SCH (13:27)
[2020-11-29] MEDS ORDERED: SODIUM CHLORIDE 0.9% 1000ML 500 ML IV ONE (15:40)
--- NOTE | 2020-11-29 15:41 | Hospitalist Progress Note ---
Date of Service November 29, 2020 Assessment & Plan (1) Sepsis: due to UTI, urine culture growing Klebsiella ESBL and Providencia continue Ertapenem 1000mg IV daily will need to treat for 14 days due to complicated UTI with perez continue IV fluids, Na coming down to 139 (2) Acute UTI: Patient reportedly has had a number of admissions in the [facility] health system for recurrent resistant UTIs, including VRE treated with linezolid. as above, urine culture with Klebsiella ESBL and Providencia Ertapenem 1gm IV daily mental status not improving yet (3) Altered mental status: metabolic encephalopathy on top of Lewy body dementia has dehydration, UTI more alert on 11/28 and conversive, eating some food treat UTI and continue D5W, Na down to 139 now he is lethargic again, minimally responsive, not eating or drinking (4) Hypernatremia: Sodium 158 upon admission, serum osmolality 333, urine osmolality 416. due to poor oral intake, free water deficit likely in range of a few liters stop D5W today Na down to 139 repeat BMP in the AM (5) Atrial fibrillation: On chronic anticoagulation with apixaban, cannot take PO right now resume Diltiazem 30mg TID and Lopressor 25mg BID-- have to hold again due to not taking PO resume Lopressor IV (6) Lewy body dementia: Lewy body dementia/anxiety with depression- Patient unable to contribute significantly to HPI or review of systems Holding medications until is more alert and able to take p.o. family interested in palliative care, POLST form completion daughter Kelly is more interested in palliative daughter Mariana is more optimistic, wants him to go to facility with IR for prostate ablation, maybe get perez out and prevent these UTI's (7) Elevated troponin: low at 0.05 twice, no concerns for ACS (8) Anxiety with depression: Holding medications until he can take p.o. (9) BPH w urinary obs/LUTS: (10) Parkinson's disease: (11) Recurrent UTI: (12) GERD (gastroesophageal reflux disease): (13) Hypertension: Admission and Anticipated Discharge Date Admission Date: November 25, 2020 Subjective patient more lethargic today HR elevated, needed to resume Lopressor IV as he won't take PO BP low normal, gave 500cc NSS bolus Na down to 139, Cr normal, WBC normal updated daughter at the bedside, explained that I am unsure why he is not waking up more infection is treated, Na normal, Cr stable could be delirium on top of his dementia, could be worsening dementia I have concerns as he won't eat or drink, will develop dehydration and hypernatremia again Review of Systems Review of Systems: Unobtainable due to cognitive status and Unobtainable due to reduced consciousness Physical Exam Constitutional: well developed, + frail appearing, cooperative and comfo rtable; no acute distress ENMT: Mouth: + dry oral mucous membranes Neck: trachea midline, no thyromegaly Respiratory: normal respiratory effort, lungs clear to auscultation Cardiovascular: Rate/Rhythm: + tachycardic and + irregularly irregular Heart Sounds: normal S1 and normal S2; no murmur Vessels: no JVD Extrem ities: normal capillary refill; no edema Gastrointestinal (Abdomen): normal bowel sounds, soft, nontender, no hepatosplenomegaly Musculoskeletal: no cyanosis or clubbing, extremities motor strength 5/5 Head/Neck/Chest: head atraumatic Skin: no rashes, warm and dry Neurologic: CN's II-XI intact bilaterally, moves all extremities and + confused; no focal motor deficits and + not awake Psychiatric: Orientation: cooperative; + not alert, + not oriented to person, + not oriented to place and + not oriented to time Lymphatic: no cervical or axillary lymphadenopathy Results & Data Results & Data ([facility]) Vital Signs (Past 12 Hours) Vital Signs Temp Pulse Pulse Pulse Resp BP BP 11/29/20 12:15 36.8 C 107 H 20 89/69 L 11/29/20 08:00 36.4 C L 116 H 101 H 18 94/58 L 11/29/20 05:46 117 H 117/74 Pulse Ox 11/29/20 12:15 93 11/29/20 08:00 97 11/29/20 05:46 Laboratory Results Laboratory Results - last 24 hr 11/29/20 11/29/20 08:38 08:38 WBC 7.60 RBC 3.60 L Hgb 11.1 L Hct 34.3 L MCV 95.3 MCH 30.8 MCHC 32.4 RDW Std Deviation 54.3 H RDW Coeff of Sandrine 15.7 H Plt Count 111 L MPV 12.9 H Sodium 139 Potassium 4.0 Chloride 110 H Carbon Dioxide 25 Anion Gap 4.0 BUN 29 H Creatinine 0.65 Est Cr Clr Drug Dosing 86.2 Est GFR ( Amer) 105.7 Est GFR (Non-Af Amer) 91.2 BUN/Creatinine Ratio 44.5 H Glucose 92 Calcium 8.1 L Magnesium 2.1 Medications Administered Current Inpatient Medications Apixaban (Apixaban 5 Mg Tablet) 5 mg PO BID [facility] Stop: 12/28/20 20:59 Last Admin: 11/29/20 08:37 Dose: Not Given Documented by: Diltiazem HCl (Diltiazem Hcl 30 Mg Tab) 30 mg PO TID [facility] Stop: 12/28/20 13:59 Last Admin: 11/29/20 13:28 Dose: Not Given Documented by: Finasteride (Finasteride 5 Mg Tab) 5 mg PO DAILY [facility] Stop: 12/29/20 08:59 Last Admin: 11/29/20 08:37 Dose: Not Given Documented by: Ertapenem 1,000 mg/ Sodium (Chloride) 60 mls @ 100 mls/hr IV Q24H [facility]; Protocol Stop: 12/07/20 11:59 Last Infusion: 11/29/20 14:19 Dose: Infused Documented by: Sodium Chloride (Nss 1000ml) 500 mls @ 999 mls/hr IV .Q31M [facility] Stop: 11/29/20 16:10 Metoprolol Tartrate (Metoprolol Tartrate 25 Mg Tab) 25 mg PO BID [facility] Stop: 12/28/20 20:59 Last Admin: 11/29/20 08:37 Dose: Not Given Documented by: Metoprolol Tartrate (Metoprolol Tartrate 1 Mg/Ml Vial) 5 mg IV Q4 [facility] Stop: 12/29/20 11:59 Last Admin: 11/29/20 12:15 Dose: Not Given Documented by: Ondansetron HCl (Ondansetron Inj 2 Mg/Ml 2 Ml Vial) 4 mg IV Q6H PRN PRN Reason: Nausea Stop: 12/25/20 23:11 Pantoprazole Sodium (Pantoprazole 40 Mg Tab) 40 mg PO DAILY [facility] Stop: 12/29/20 08:59 Last Admin: 11/29/20 08:37 Dose: Not Given Documented by: Tamsulosin HCl (Tamsulosin Hcl 0.4 Mg Cap) 0.4 mg PO DAILY [facility] Stop: 12/29/20 08:59 Last Admin: 11/29/20 08:37 Dose: Not Given Documented by: PG Care Time/CCT Total # of Minutes Spent Total Time Spent with Patient: Total time spent is greater than 50% in coordination of care (as documented) at patient's floor/unit and/or counseling patient: Coding Level of Care Code 10666 Subseq Hosp Care Lvl 3 Diagnoses Sepsis A41.9; R65.20; J96.01 Acute respiratory failure type: with hypoxia Sepsis acute organ dysfunction status: with acute organ dysfunction Sepsis type: sepsis due to unspecified organism Severe sepsis acute organ dysfunction type: acute respiratory failure Severe sepsis shock status: unspecified Acute UTI N39.0 Altered mental status R41.0 Altered mental status type: disorientation Hypernatremia E87.0 Atrial fibrillation I48.91 Lewy body dementia G31.83; F02.80 Elevated troponin R77.8 Anxiety with depression F41.8 BPH w urinary obs/LUTS N40.1; N13.8 Parkinson's disease G20 Recurrent UTI N39.0 GERD (gastroesophageal reflux disease) K21.9 Hypertension I10 (1) Sepsis Acute respiratory failure type: with hypoxia Sepsis acute organ dysfunction status: with acute organ dysfunction Sepsis type: sepsis due to unspecified organism Severe sepsis acute organ dysfunction type: acute respiratory failure Severe sepsis shock status: unspecified Qualified Code(s): A41.9 - Sepsis, unspecified organism; R65.20 - Severe sepsis without septic shock; J96.01 - Acute respiratory failure with hypoxia (2) Altered mental status Altered mental status type: disorientation Qualified Code(s): R41.0 - Disorientation, unspecified
[2020-11-30] MEDS: METOPROLOL TARTRATE 1 MG/ML VIAL IV SCH ×3 (00:06→07:56)
[2020-11-30] MEDS ORDERED: SODIUM CHLORIDE 0.9% 1000ML 250 ML IV ONE (05:02)
[2020-11-30 06:25] LABS: BUN Creatinine Ratio 48.9 (10-20); Calcium 8.3 mg/dl (8.5-10.1); Est GFR (Non-African American) 94.9 ml/min; Magnesium 2.1 mg/dl (1.8-2.4)
[2020-11-30] MEDS: dilTIAZem HCL 30 MG TAB PO SCH ×3 (08:43→20:39)
[2020-11-30] MEDS: APIXABAN 5 MG TABLET PO SCH ×2 (08:43→20:39)
[2020-11-30] MEDS: PANTOprazole 40 MG TAB PO SCH (08:44)
[2020-11-30] MEDS: METOPROLOL TARTRATE 25 MG TAB PO SCH ×2 (08:44→20:38)
[2020-11-30] MEDS: FINASTERIDE 5 MG TAB PO SCH (08:44)
[2020-11-30] MEDS: TAMSULOSIN HCL 0.4 MG CAP PO SCH (08:45)
--- NOTE | 2020-11-30 11:13 | Hospitalist Progress Note ---
Date of Service November 30, 2020 Assessment & Plan (1) Sepsis: due to UTI, urine culture growing Klebsiella ESBL and Providencia continue Ertapenem 1000mg IV daily will need to treat for 14 days due to complicated UTI with perez Na is 140 (2) Acute UTI: Patient reportedly has had a number of admissions in the [facility] health system for recurrent resistant UTIs, including VRE treated with linezolid. as above, urine culture with Klebsiella ESBL and Providencia Ertapenem 1gm IV daily mental status slightly improved as he is more alert, took pills but not eating much (3) Altered mental status: metabolic encephalopathy on top of Lewy body dementia has dehydration, UTI more alert on 11/28 and conversive, eating some food treat UTI and continue D5W, Na down to 139 then lethargic all day on 11/29 despite correction of sodium and appropriate antibiotics more alert today, took pills with applesauce but not eating much or drinking much (4) Hypernatremia: Sodium 158 upon admission, serum osmolality 333, urine osmolality 416. due to poor oral intake, free water deficit likely in range of a few liters stop D5W 11/29 Na down to 140, no fluids for now, see if he can drink enough to maintain normal sodium repeat BMP in the AM (5) Atrial fibrillation: On chronic anticoagulation with apixaban, cannot take PO right now resume Diltiazem 30mg TID and Lopressor 25mg BID-- have to hold again due to not taking PO resume Lopressor IV (6) Lewy body dementia: Lewy body dementia/anxiety with depression- Patient unable to contribute significantly to HPI or review of systems Holding medications until is more alert and able to take p.o. family interested in palliative care, POLST form completion daughter Kelly is more interested in palliative daughter Mariana is more optimistic, wants him to go to facility with IR for prostate ablation, maybe get perez out and prevent these UTI's will see how he does over the weekend with normal sodium and appropriate antibiotics fear that his dementia is too far advanced that even with removal of perez he would not have much quality of life (7) Elevated troponin: low at 0.05 twice, no concerns for ACS (8) Anxiety with depression: Holding medications until he can take p.o. (9) BPH w urinary obs/LUTS: (10) Parkinson's disease: (11) Recurrent UTI: (12) GERD (gastroesophageal reflux disease): (13) Hypertension: Admission and Anticipated Discharge Date Admission Date: November 25, 2020 Subjective patient a little more alert and responsive today, took some pills with applesauce, not drinking well Na is 140, K 4.0, Cr 0.59, mag 2.1 will get speech therapy to see him cannot review systems Review of Systems Review of Systems: Unobtainable due to cognitive status Physical Exam Constitutional: well developed, + frail appearing, cooperative and comfortable; no acute distress ENMT: Mouth: + dry oral mucous membranes Neck: trachea midline, no thyromegaly Respiratory: normal respiratory effort, lungs clear to auscultation Cardiovascular: Rate/Rhythm: + tachycardic and + irregularly irregular Heart Sounds: normal S1 and normal S2; no murmur Vessels: no JVD Extremities: normal capillary refill; no edema Gastrointestinal (Abdomen): normal bowel sounds, soft, nontender, no hepatosplenomegaly Musculoskeletal: no cyanosis or clubbing, extremities motor strength 5/5 Head/Neck/Chest: head atraumatic Skin: no rashes, warm and dry Neurologic: CN's II-XI intact bilaterally, moves all extremities and + co nfused; no focal motor deficits and + not awake Psychiatric: Orientation: alert and cooperative; + not oriented to person, + not oriented to place and + not oriented to time Lymphatic: no cervical or axillary lymphadenopathy Results & Data Results & Data ([facility]) Vital Signs (Past 12 Hours) Vital Signs Temp Pulse Pulse Pulse Resp BP BP 11/30/20 11:04 36.9 C 104 H 18 11/30/20 08:38 114 H 11/30/20 07:56 121 H 96/57 L 11/30/20 07:37 125 H 104/67 11/30/20 07:22 121 H 11/30/20 07:10 36.9 C 121 H 19 11/30/20 05:46 135 H 11/30/20 04:46 133 H 11/30/20 04:29 106 H 11/30/20 04:00 113 H 111/72 11/30/20 03:42 36.7 C 102 H 20 11/30/20 01:10 113 H 95/64 L 11/29/20 23:21 117 H 107 H BP BP Pulse Ox 11/30/20 11:04 94/56 L 94 11/30/20 08:38 102/64 11/30/20 07:56 11/30/20 07:37 11/30/20 07:22 11/30/20 07:10 110/76 94 11/30/20 05:46 98/63 L 11/30/20 04:46 102/73 11/30/20 04:29 112/71 11/30/20 04:00 11/30/20 03:42 114/73 97 11/30/20 01:10 11/29/20 23:21 Laboratory Results Laboratory Results - last 24 hr 11/30/20 05:16 Sodium 140 Potassium 4.0 Chloride 112 H Carbon Dioxide 24 Anion Gap 4.0 BUN 29 H Creatinine 0.59 L Est Cr Clr Drug Dosing 95.0 Est GFR ( Amer) 110.0 Est GFR (Non-Af Amer) 94.9 BUN/Creatinine Ratio 48.9 H Glucose 90 Calcium 8.3 L Magnesium 2.1 Medications Administered Current Inpatient Medications Apixaban (Apixaban 5 Mg Tablet) 5 mg PO BID [facility] Stop: 12/28/20 20:59 Last Admin: 11/30/20 08:43 Dose: 5 mg Documented by: Diltiazem HCl (Diltiazem Hcl 30 Mg Tab) 30 mg PO TID [facility] Stop: 12/28/20 13:59 Last Admin: 11/30/20 08:43 Dose: 30 mg Documented by: Finasteride (Finasteride 5 Mg Tab) 5 mg PO DAILY [facility] Stop: 12/29/20 08:59 Last Admin: 11/30/20 08:44 Dose: 5 mg Documented by: Ertapenem 1,000 mg/ Sodium (Chloride) 60 mls @ 100 mls/hr IV Q24H [facility]; Protocol Stop: 12/07/20 11:59 Last Infusion: 11/29/20 14:19 Dose: Infused Documented by: Metoprolol Tartrate (Metoprolol Tartrate 25 Mg Tab) 25 mg PO BID [facility] Stop: 12/28/20 20:59 Last Admin: 11/30/20 08:44 Dose: 25 mg Documented by: Ondansetron HCl (Ondansetron Inj 2 Mg/Ml 2 Ml Vial) 4 mg IV Q6H PRN PRN Reason: Nausea Stop: 12/25/20 23:11 Pantoprazole Sodium (Pantoprazole 40 Mg Tab) 40 mg PO DAILY [facility] Stop: 12/29/20 08:59 Last Admin: 11/30/20 08:44 Dose: 40 mg Documented by: Tamsulosin HCl (Tamsulosin Hcl 0.4 Mg Cap) 0.4 mg PO DAILY [facility] Stop: 12/29/20 08:59 Last Admin: 11/30/20 08:45 Dose: 0.4 mg Documented by: PG Care Time/CCT Total # of Minutes Spent Total Time Spent with Patient: Total time spent is greater than 50% in coordination of care (as documented) at patient's floor/unit and/or counseling patient: Coding Level of Care Code 73585 Subseq Hosp Care Lvl 3 Diagnoses Sepsis A41.9; R65.20; J96.01 Acute respiratory failure type: with hypoxia Sepsis acute organ dysfunction status: with acute organ dysfunction Sepsis type: sepsis due to unspecified organism Severe sepsis acute organ dysfunction type: acute respiratory failure Severe sepsis shock status: unspecified Acute UTI N39.0 Altered mental status R41.0 Altered mental status type: disorientation Hypernatremia E87.0 Atrial fibrillation I48.91 Lewy body dementia G31.83; F02.80 Elevated troponin R77.8 Anxiety with depression F41.8 BPH w urinary obs/LUTS N40.1; N13.8 Parkinson's disease G20 Recurrent UTI N39.0 GERD (gastroesophageal reflux disease) K21.9 Hypertension I10 (1) Sepsis Acute respiratory failure type: with hypoxia Sepsis acute organ dysfunction status: with acute organ dysfunction Sepsis type: sepsis due to unspecified organism Severe sepsis acute organ dysfunction type: acute respiratory failure Severe sepsis shock status: unspecified Qualified Code(s): A41.9 - Sepsis, unspecified organism; R65.20 - Severe sepsis without septic shock; J96.01 - Acute respiratory failure with hypoxia (2) Altered mental status Altered mental status type: disorientation Qualified Code(s): R41.0 - Disorientation, unspecified
[2020-11-30] MEDS: ERTAPENEM SODIUM 1,000 MG in SODIUM CHLORIDE 0.9% 50 ML IV SCH (11:40)
[2020-12-01] MEDS ORDERED: METOPROLOL TARTRATE 1 MG/ML VIAL IV STA ×2 (01:36→22:35)
[2020-12-01 07:08] LABS: BUN Creatinine Ratio 46.2 (10-20); Calcium 8.3 mg/dl (8.5-10.1); Creatinine Clr Calc Pharmacy 108.8 ml/min; Est GFR (African American) 112.4 ml/min; Magnesium 2.2 mg/dl (1.8-2.4); Potassium 4.3 mmol/L (3.5-5.1)
[2020-12-01] MEDS: PANTOprazole 40 MG TAB PO SCH (08:15)
[2020-12-01] MEDS: FINASTERIDE 5 MG TAB PO SCH (08:15)
[2020-12-01] MEDS: dilTIAZem HCL 30 MG TAB PO SCH ×3 (08:15→20:29)
[2020-12-01] MEDS: APIXABAN 5 MG TABLET PO SCH ×2 (08:15→20:29)
[2020-12-01] MEDS: TAMSULOSIN HCL 0.4 MG CAP PO SCH (08:15)
[2020-12-01] MEDS: METOPROLOL TARTRATE 25 MG TAB PO SCH ×2 (09:08→20:29)
--- NOTE | 2020-12-01 09:54 | Hospitalist Progress Note ---
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 Boom Ramirez with IR at [place], they are happy to evaluate him for embolization with hopes of getting perez out he requests that the patient be set up with urology at [place] so that they can confirm there is nothing urologically that can help him please have family service caseworker reach out to get him scheduled with [facility] in [place] at earliest possible visit after discharge copy Dr. Boom Ramirez in on the visit recurrent infections currently with Klebsiella ESBL and Providencia in the past he has had Citrobacter and Proteus in our system in the [place] system he reportedly had VRE (per his daughter) ask ID to weigh in on prevention of infections, cycling oral antibiotics? (2) Metabolic encephalopathy: due to UTI and hypernatremia, but also has underlying Lewy Body dementia more alert, able to eat and drink more, but clearly has severe cognitive impairment at baseline will discontinue Seroquel and Ativan and will stop Celexa (he was only on 10mg) resume Namenda and Rivastigmine (3) Sepsis: due to UTI, urine culture growing Klebsiella ESBL and Providencia continue Ertapenem 1000mg IV daily, day 4, needs 10 more days will need to treat for 14 days due to complicated UTI with perez Na is 137 (4) Acute UTI: catheter associated UTI Patient reportedly has had a number of admissions in the [facility] health system for recurrent resistant UTIs, including VRE treated with linezolid. as above, urine culture with Klebsiella ESBL and Providencia Ertapenem 1gm IV daily mental status improved as he is more alert, took pills but not eating much (5) Altered mental status: metabolic encephalopathy on top of Lewy body dementia has dehydration, UTI more alert on 11/28 and conversive, eating some food treat UTI and continue D5W, Na down to 139 then lethargic all day on 11/29 despite correction of sodium and appropriate antibiotics more alert today, took pills with applesauce but not eating much or drinking much (6) Hypernatremia: Sodium 158 upon admission, serum osmolality 333, urine osmolality 416. due to poor oral intake, free water deficit likely in range of a few liters stop D5W 11/29 Na down to 137, no fluids for now, see if he can drink enough to maintain normal sodium repeat BMP in the AM (7) Atrial fibrillation: On chronic anticoagulation with apixaban, resume resume Diltiazem 30mg TID and Lopressor 25mg BID having issues with tachycardia and low normal BP, gave 500cc bolus of NSS today and responded well needs to drink more, suspect he will continue to need intermittent fluid boluses (8) Lewy body dementia: Lewy body dementia/anxiety with depression- daughter Kelly is more interested in palliative daughter Mariana is more optimistic, wants him to go to facility with IR for prostate ablation, maybe get perez out and prevent these UTI's he is calm and cooperative now feel that he was over medicated prior to admission discontinue Ativan 1mg BID, discontinue Seroquel, discontinue Celexa resume Namenda and Rivastigmine (9) BPH w urinary obs/LUTS: perez since July 2020 recurrent UTI per daughter's request, her only hope is that if he goes to IR for arterial prostate ablation and then maybe gets perez out he won't have UTI all the time (10) Parkinson's disease: (11) Recurrent UTI: (12) GERD (gastroesophageal reflux disease): (13) Hypertension: Admission and Anticipated Discharge Date Admission Date: November 25, 2020 Subjective patient more alert today, eating and drinking more for his daughter but not great Na is stable, Cr is stable, no fever HR was up into the 120-130 range despite Diltiazem and Lopressor, BP 90's, gave him 500cc bolus of NSS, responded well called IR at [place], discussed with Dr. Ramirez, he says that they do perform prostate arterial embolization for specific patients he requests that the patient be set up with urology at [place] so that they can confirm on their end that there is nothing that can be done urologically, send to IR spoke with his daughter at the bedside, she has concerns about patient going back to [facility] and getting worse requests that the perez be exchanged, she does not think it was done at [facility] she is requesting that we do not resume Ativan and Seroquel and Celexa, I would agree since he is more alert and responsive at this time I assured her that he needs a few more days, need him eating/drinking more, want his heart rate better controlled on PO medications Review of Systems Review of Systems: Unobtainable due to cognitive status Physical Exam Constitutional: well developed, + frail appearing, cooperative and com fortable; no acute distress ENMT: Mouth: + dry oral mucous membranes Neck: trachea midline, no thyromegaly Respiratory: normal respiratory effort, lungs clear to auscultation Cardiovascular: Rate/Rhythm: + tachycardic and + irregularly irregular Heart Sounds: normal S1 and normal S2; no murmur Vessels: no JVD Extr emities: normal capillary refill; no edema Gastrointestinal (Abdomen): normal bowel sounds, soft, nontender, no hepatosplenomegaly Musculoskeletal: no cyanosis or clubbing, extremities motor strength 5/5 Head/Neck/Chest: head atraumatic Skin: no rashes, warm and dry Neurologic: CN's II-XI intact bilaterally, moves all extremities, awake and + confused; no focal motor deficits Psychiatric: Orientation: alert and cooperative; + not oriented to person, + not oriented to place and + not oriented to time Lymphatic: no cervical or axillary lymphadenopathy Results & Data Results & Data ([facility]) Vital Signs (Past 12 Hours) Vital Signs Temp Pulse Pulse Resp BP BP Pulse Ox 12/01/20 09:00 133 H 12/01/20 02:35 36.0 C L 98 H 18 91/62 L 95 12/01/20 01:49 131 H 110/54 L 12/01/20 01:43 36.8 C 131 H 20 110/54 L 95 11/30/20 22:51 36.8 C 103 H 20 98/60 L 94 Laboratory Results Laboratory Results - last 24 hr 12/01/20 06:16 Sodium 137 Potassium 4.3 Chloride 110 H Carbon Dioxide 25 Anion Gap 2.0 L BUN 26 H Creatinine 0.56 L Est Cr Clr Drug Dosing 108.8 Est GFR ( Amer) 112.4 Est GFR (Non-Af Amer) 97.0 BUN/Creatinine Ratio 46.2 H Glucose 94 Calcium 8.3 L Magnesium 2.2 Medications Administered Current Inpatient Medications Apixaban (Apixaban 5 Mg Tablet) 5 mg PO BID [facility] Stop: 12/28/20 20:59 Last Admin: 12/01/20 20:29 Dose: 5 mg Documented by: Diltiazem HCl (Diltiazem Hcl 30 Mg Tab) 30 mg PO TID [facility] Stop: 12/28/20 13:59 Last Admin: 12/01/20 20:29 Dose: 30 mg Documented by: Finasteride (Finasteride 5 Mg Tab) 5 mg PO DAILY [facility] Stop: 12/29/20 08:59 Last Admin: 12/01/20 08:15 Dose: 5 mg Documented by: Ertapenem 1,000 mg/ Sodium (Chloride) 60 mls @ 100 mls/hr IV Q24H [facility]; Protocol Stop: 12/07/20 11:59 Last Infusion: 12/01/20 12:39 Dose: Infused Documented by: Memantine (Memantine Hcl 10 Mg Tab) 10 mg PO BID [facility] Stop: 12/31/20 20:59 Last Admin: 12/01/20 20:29 Dose: 10 mg Documented by: Metoprolol Tartrate (Metoprolol Tartrate 25 Mg Tab) 25 mg PO BID [facility] Stop: 12/28/20 20:59 Last Admin: 12/01/20 20:29 Dose: 25 mg Documented by: Ondansetron HCl (Ondansetron Inj 2 Mg/Ml 2 Ml Vial) 4 mg IV Q6H PRN PRN Reason: Nausea Stop: 12/25/20 23:11 Pantoprazole Sodium (Pantoprazole 40 Mg Tab) 40 mg PO DAILY [facility] Stop: 12/29/20 08:59 Last Admin: 12/01/20 08:15 Dose: 40 mg Documented by: Rivastigmine Tartrate (Rivastigmine Tartrate 1.5 Mg Cap) 1.5 mg PO BID [facility] Stop: 12/31/20 20:59 Last Admin: 12/01/20 20:29 Dose: 1.5 mg Documented by: Tamsulosin HCl (Tamsulosin Hcl 0.4 Mg Cap) 0.4 mg PO DAILY [facility] Stop: 12/29/20 08:59 Last Admin: 12/01/20 08:15 Dose: 0.4 mg Documented by: PG Care Time/CCT Total # of Minutes Spent Total Time Spent with Patient: Total time spent is greater than 50% in coordination of care (as documented) at patient's floor/unit and/or counseling patient: Coding Level of Care Code 34822 Subseq Hosp Care Lvl 3 (25 - SIGNIFICANT, SEPARATELY IDENTIFIABLE ) Diagnoses Catheter-associated urinary tract infection T83.511A; N39.0 Metabolic encephalopathy G93.41 Sepsis A41.9; R65.20; J96.01 Acute respiratory failure type: with hypoxia Sepsis acute organ dysfunction status: with acute organ dysfunction Sepsis type: sepsis due to unspecified organism Severe sepsis acute organ dysfunction type: acute respiratory failure Severe sepsis shock status: unspecified Acute UTI N39.0 Altered mental status R41.0 Altered mental status type: disorientation Hypernatremia E87.0 Atrial fibrillation I48.91 Lewy body dementia G31.83; F02.80 BPH w urinary obs/LUTS N40.1; N13.8 Parkinson's disease G20 Recurrent UTI N39.0 GERD (gastroesophageal reflux disease) K21.9 Hypertension I10 (1) Sepsis Acute respiratory failure type: with hypoxia Sepsis acute organ dysfunction status: with acute organ dysfunction Sepsis type: sepsis due to unspecified organism Severe sepsis acute organ dysfunction type: acute respiratory failure Severe sepsis shock status: unspecified Qualified Code(s): A41.9 - Sepsis, unspecified organism; R65.20 - Severe sepsis without septic shock; J96.01 - Acute respiratory failure with hypoxia (2) Altered mental status Altered mental status type: disorientation Qualified Code(s): R41.0 - Disorientation, unspecified
[2020-12-01] MEDS ORDERED: SODIUM CHLORIDE 0.9% 1000ML 500 ML IV ONE (11:51)
[2020-12-01] MEDS: ERTAPENEM SODIUM 1,000 MG in SODIUM CHLORIDE 0.9% 50 ML IV SCH (11:59)
[2020-12-01] MEDS: RIVASTIGMINE TARTRATE 1.5 MG CAP PO SCH (20:29)
[2020-12-01] MEDS: MEMANTINE HCL 10 MG TAB PO SCH (20:29)
[2020-12-02 07:39] LABS: BUN Creatinine Ratio 43.2 (10-20); Calcium 8.4 mg/dl (8.5-10.1); Creatinine Clr Calc Pharmacy 98.3 ml/min; Est GFR (African American) 111.6 ml/min; Est GFR (Non-African American) 96.3 ml/min; Magnesium 2.2 mg/dl (1.8-2.4); Potassium 4.2 mmol/L (3.5-5.1)
[2020-12-02] MEDS: TAMSULOSIN HCL 0.4 MG CAP PO SCH (08:39)
[2020-12-02] MEDS: RIVASTIGMINE TARTRATE 1.5 MG CAP PO SCH ×2 (08:39→21:04)
[2020-12-02] MEDS: FINASTERIDE 5 MG TAB PO SCH (08:39)
[2020-12-02] MEDS: MEMANTINE HCL 10 MG TAB PO SCH ×2 (08:39→21:04)
[2020-12-02] MEDS: APIXABAN 5 MG TABLET PO SCH ×2 (08:40→21:03)
[2020-12-02] MEDS: METOPROLOL TARTRATE 25 MG TAB PO SCH ×2 (08:41→21:02)
[2020-12-02] MEDS: PANTOprazole 40 MG TAB PO SCH (08:41)
[2020-12-02] MEDS: dilTIAZem HCL 30 MG TAB PO SCH ×4 (08:41→23:59)
[2020-12-02] MEDS: ERTAPENEM SODIUM 1,000 MG in SODIUM CHLORIDE 0.9% 50 ML IV SCH (11:51)
[2020-12-02] MEDS ORDERED: dilTIAZem HCL 30 MG TAB PO ONE (17:25)
[2020-12-02] MEDS: NYSTATIN SUSP 500,000 U/5 ML UDC PO SCH ×2 (17:51→21:02)
--- NOTE | 2020-12-02 23:05 | Hospitalist Progress Note ---
Date of Service December 02, 2020 Assessment & Plan (1) Atrial fibrillation: Typically on diltiazem 30mg TID + metoprolol 25mg BID. Still uncontrolled despite such. Increase diltiazem to 30mg QID. Check TSH in am - r/o hyperthyroid state. Cont eliquis. (2) Candidiasis of mouth and esophagus: nystatin solution 5cc qid swish/swallow (3) Catheter-associated urinary tract infection: 2nd Providencia stuartii and Klebsiella pneumoniae ESBL Both sensitive to ertapenem day #6 of such 14 day course is planned clinically stable/improved per Dr Lai, previous attending in the past he has had Citrobacter and Proteus at [facility] system he reportedly had VRE [facility] ID consult pending (4) Sepsis: 2nd to UTI sepsis resolved (5) Metabolic encephalopathy: due to UTI and hypernatremia this is in the setting of underlying Lewy Body dementia Seroquel, Ativan and celexa were stopped at request of daughter per the PDMP he was on ativan at least since September 2020 cannot rule out he is having some mild withdrawal (tachycardia, etc) would resume ativan at 0.25mg BID and wean off more slowly over 1-2 weeks to avoid withdrawal (6) Hypernatremia: Sodium 158 upon admission Resolved he is off fluids (7) Lewy body dementia: cont Namenda and Rivastigmine seroquel, celexa, and ativan were d/c this admission resuming ativan - albeit at lower dose of 0.25mg BID - to prevent withdrawal (PDMP shows he has been on ativan at least since early September 2020) (8) BPH w urinary obs/LUTS: perez since July 2020 recurrent UTIs as noted above Dr Lai spoke with Dr. Boom Ramirez with IR at [facility] Dr Lai inquired with Dr Ramirez about prostate embolization for BPH (with hopes of being able to d/c perez) Dr Ramirez requested that the patient be set up with urology in [place] to evaluate his candidacy for this procedure cont perez in meantime (9) Parkinson's disease: or parkinsonism 2nd to Lewy-Body dementia? (10) Recurrent UTI: as above (11) GERD (gastroesophageal reflux disease): cont PPI (12) Hypertension: BB CCB controlled (13) DVT prophylaxis: eliquis 5mg BID left message for Mariana Biggs, daughter, on 12/02 Admission and Anticipated Discharge Date Admission Date: November 25, 2020 Subjective patient awake during the visit unable to provide any history or ROS most questions that I asked he did not answer a.fib rates nearly all >100 over last 24 hours Review of Systems Review of Systems: Unobtainable due to cognitive status Physical Exam Constitutional: + altered mental status; no acute distress ENMT: Mouth: + tongue abnormality (thrush plaques) Respiratory: normal respiratory effort, lungs clear to auscultation Cardiovascular: Rate/Rhythm: + tachycardic and + irregularly irregular Heart Sounds: normal S1 and normal S2; no murmur Vessels: posterior tibial pulses present and dorsalis pedis pulses present; no JVD Extremities: no edema Gastrointestinal (Abdomen): normal bowel sounds, soft, nontender, no hepatosplenomegaly Psychiatric: Orientation: alert and oriented to person; + not oriented to place and + not oriented to time Results & Data Results & Data ([facility]) Vital Signs (Past 12 Hours) Vital Signs Temp Pulse Resp BP BP Pulse Ox 12/02/20 22:58 36.6 C 113 H 20 105/69 97 12/02/20 19:42 36.7 C 103 H 16 101/78 98 12/02/20 15:27 36.8 C 94 H 18 96/62 L 98 12/02/20 11:05 36.4 C L 94 H 16 112/70 99 Laboratory Results Laboratory Results - last 24 hr 12/02/20 06:48 Sodium 140 Potassium 4.2 Chloride 111 H Carbon Dioxide 25 Anion Gap 4.0 BUN 24 H Creatinine 0.57 L Est Cr Clr Drug Dosing 98.3 Est GFR ( Amer) 111.6 Est GFR (Non-Af Amer) 96.3 BUN/Creatinine Ratio 43.2 H Glucose 85 Calcium 8.4 L Magnesium 2.2 PG Care Time/CCT Total # of Minutes Spent Total Time Spent with Patient: Total time spent is greater than 50% in coordination of care (as documented) at patient's floor/unit and/or counseling patient: Coding Level of Care Code 26253 Subseq Hosp Care Lvl 3 Diagnoses Atrial fibrillation I48.91 Candidiasis of mouth and esophagus B37.81; B37.0 Catheter-associated urinary tract infection T83.511A; N39.0 Sepsis A41.9; R65.20; J96.01 Acute respiratory failure type: with hypoxia Sepsis acute organ dysfunction status: with acute organ dysfunction Sepsis type: sepsis due to unspecified organism Severe sepsis acute organ dysfunction type: acute respiratory failure Severe sepsis shock status: unspecified Metabolic encephalopathy G93.41 Hypernatremia E87.0 Lewy body dementia G31.83; F02.80 BPH w urinary obs/LUTS N40.1; N13.8 Parkinson's disease G20 Recurrent UTI N39.0 GERD (gastroesophageal reflux disease) K21.9 Hypertension I10 DVT prophylaxis Z29.9 (1) Sepsis Acute respiratory failure type: with hypoxia Sepsis acute organ dysfunction status: with acute organ dysfunction Sepsis type: sepsis due to unspecified organism Severe sepsis acute organ dysfunction type: acute respiratory failure Severe sepsis shock status: unspecified Qualified Code(s): A41.9 - Sepsis, unspecified organism; R65.20 - Severe sepsis without septic shock; J96.01 - Acute respiratory failure with hypoxia
[2020-12-02] MEDS ORDERED: LORazepam 0.5 MG TAB PO STA (23:12)
[2020-12-03] MEDS: dilTIAZem HCL 30 MG TAB PO SCH ×3 (06:32→17:22)
[2020-12-03 06:57] LABS: Hematocrit (blood only) 36.1 % (42-52); Hemoglobin 11.5 g/dL (14.0-18.0); Mean Corpuscular Hemoglobin 31.3 pg (25-34); Mean Corpuscular Hgb Conc 31.9 g/dL (32-36); Mean Corpuscular Volume 98.1 fL (80-100); Mean Platelet Volume 11.9 fL (7.4-10.4); Platelet Count 180 K/uL (130-400); RDW Coefficient of Variation 16.2 % (11.5-14.5); RDW Standard Deviation 57.7 fL (36.4-46.3); Red Blood Count 3.68 M/uL (4.7-6.1); White Blood Count 6.93 K/uL (4.8-10.8)
[2020-12-03 07:35] LABS: Creatinine Clr Calc Pharmacy 78.9 ml/min
[2020-12-03 07:45] LABS: Thyroid Stimulating Hormone 4.05 uIu/ml (0.300-4.500)
[2020-12-03 07:47] LABS: Folate (Folic Acid) 10.6 ng/ml (>5.38)
[2020-12-03] MEDS: APIXABAN 5 MG TABLET PO SCH ×2 (08:16→21:00)
[2020-12-03] MEDS: FINASTERIDE 5 MG TAB PO SCH (08:16)
[2020-12-03] MEDS: LORazepam 0.5 MG TAB PO SCH ×2 (08:22→21:26)
[2020-12-03] MEDS: PANTOprazole 40 MG TAB PO SCH (08:23)
[2020-12-03] MEDS: NYSTATIN SUSP 500,000 U/5 ML UDC PO SCH ×4 (08:23→21:01)
[2020-12-03] MEDS: MEMANTINE HCL 10 MG TAB PO SCH ×2 (08:23→21:24)
[2020-12-03] MEDS: TAMSULOSIN HCL 0.4 MG CAP PO SCH (08:24)
[2020-12-03] MEDS: RIVASTIGMINE TARTRATE 1.5 MG CAP PO SCH ×2 (08:24→21:25)
[2020-12-03] MEDS ORDERED: METOPROLOL TARTRATE 25 MG TAB PO SCH (09:00)
[2020-12-03] MEDS: ERTAPENEM SODIUM 1,000 MG in SODIUM CHLORIDE 0.9% 50 ML IV SCH (11:51)
--- NOTE | 2020-12-03 20:28 | Hospitalist Progress Note ---
Date of Service December 03, 2020 Assessment & Plan (1) Atrial fibrillation: Typically on diltiazem 30mg TID + metoprolol 25mg BID. Rates have been uncontrolled with above. Increased metoprolol to 37.5mg initially, rates still high. Increase again to 50mg BID. Diltiazem increased to 30mg q6h. TSH wnl - no hyperthyroidism. Cont eliquis. 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 (4) Sepsis: 2nd to UTI sepsis resolved (5) Metabolic encephalopathy: due to UTI and hypernatremia this is in the setting of underlying Lewy Body dementia Seroquel, Ativan and celexa were stopped at request of daughter per the PDMP he was on ativan at least since September 2020 cannot rule out he is having some mild withdrawal (tachycardia, etc) would resume ativan at 0.25mg BID and wean off more slowly over 1-2 weeks to avoid withdrawal mental status seems to be at baseline (6) Hypernatremia: Sodium 158 upon admission Resolved he is off fluids recheck BMP am (7) Lewy body dementia: cont Namenda and Rivastigmine seroquel, celexa, and ativan were d/c this admission resuming ativan - albeit at lower dose of 0.25mg BID - to prevent withdrawal (PDMP shows he has been on ativan at least since early September 2020) (8) BPH w urinary obs/LUTS: perez since July 2020 recurrent UTIs as noted above Dr Lai spoke with Dr. Boom Ramirez with IR at [facility] Dr Lai inquired with Dr Ramirez about prostate embolization for BPH (with hopes of being able to d/c perez) Dr Ramirez requested that the patient be set up with urology in [place] to evaluate his candidacy for this procedure he is on books for appt in [place] December 16 with [facility] urology cont ana in meantime (9) Parkinson's disease: or parkinsonism 2nd to Lewy-Body dementia? (10) Recurrent UTI: as above (11) GERD (gastroesophageal reflux disease): cont PPI - change to prevacid as this will dissolve more easily for him (12) Hypertension: BB CCB controlled (13) Thrombocytopenia: 2nd to recent infection?? B12, folate, TSH wnl simply trend for now (14) DVT prophylaxis: eliquis 5mg BID left message for Mariana Biggs, daughter, on 12/02 updated Mariana at bedside today back to SNF next 1-2 days once a.fib rates are controlled Admission and Anticipated Discharge Date Admission Date: November 25, 2020 Subjective with changes in BB and CCB his HRs are now 105-115 rather than 120s/130s asymptomatic from such patient sleepy during the visit awoke to name being called but did not say any specific words daughter at bedside she is pleased he is linked in with [facility] urology for consideration of prostate procedure per nursing eating <50% of meals drinking very little fluid even w/ encouragement Review of Systems Review of Systems: Unobtainable due to cognitive status Physical Exam Constitutional: + altered mental status; no acute distress ENMT: Mouth: + tongue abnormality (thrush plaques) Respiratory: normal respiratory effort, lungs clear to auscultation Cardiovascular: Rate/Rhythm: + tachycardic and + irregularly irregular Heart Sounds: normal S1 and normal S2; no murmur Vessels: posterior tibial pulses present and dorsalis pedis pulses present; no JVD Extremities: no edema Gastrointestinal (Abdomen): normal bowel sounds, soft, nontender, no hepatosplenomegaly Psychiatric: Orientation: oriented to person; + not alert, + not oriented to place and + not oriented to time Results & Data Results & Data ([facility]) Vital Signs (Past 12 Hours) Vital Signs Temp Pulse Pulse Resp BP BP Pulse Ox 12/03/20 19:27 36.8 C 68 18 140/89 95 12/03/20 12:05 37.1 C 75 16 94/64 L 94 Laboratory Results Laboratory Results - last 24 hr 12/03/20 12/03/20 12/03/20 06:27 06:27 06:27 WBC 6.93 RBC 3.68 L Hgb 11.5 L Hct 36.1 L MCV 98.1 MCH 31.3 MCHC 31.9 L RDW Std Deviation 57.7 H RDW Coeff of Sandrine 16.2 H Plt Count 180 MPV 11.9 H Creatinine 0.71 Est Cr Clr Drug Dosing 78.9 Est GFR ( Amer) 102.0 Est GFR (Non-Af Amer) 88.0 Vitamin B12 790 Folate 10.60 TSH 4.050 PG Care Time/CCT Total # of Minutes Spent Total Time Spent with Patient: Total time spent is greater than 50% in coordination of care (as documented) at patient's floor/unit and/or counseling patient: Coding Level of Care Code 39907 Subseq Hosp Care Lvl 3 Diagnoses Atrial fibrillation I48.91 Candidiasis of mouth and esophagus B37.81; B37.0 Catheter-associated urinary tract infection T83.511A; N39.0 Sepsis A41.9; R65.20; J96.01 Acute respiratory failure type: with hypoxia Sepsis acute organ dysfunction status: with acute organ dysfunction Sepsis type: sepsis due to unspecified organism Severe sepsis acute organ dysfunction type: acute respiratory failure Severe sepsis shock status: unspecified Metabolic encephalopathy G93.41 Hypernatremia E87.0 Lewy body dementia G31.83; F02.80 BPH w urinary obs/LUTS N40.1; N13.8 Parkinson's disease G20 Recurrent UTI N39.0 GERD (gastroesophageal reflux disease) K21.9 Hypertension I10 Thrombocytopenia D69.6 DVT prophylaxis Z29.9 (1) Sepsis Acute respiratory failure type: with hypoxia Sepsis acute organ dysfunction status: with acute organ dysfunction Sepsis type: sepsis due to unspecified organism Severe sepsis acute organ dysfunction type: acute respiratory failure Severe sepsis shock status: unspecified Qualified Code(s): A41.9 - Sepsis, unspecified organism; R65.20 - Severe sepsis without septic shock; J96.01 - Acute respiratory failure with hypoxia
[2020-12-03] MEDS: METOPROLOL TARTRATE 50 MG TAB PO SCH (20:59)
[2020-12-04] MEDS: dilTIAZem HCL 30 MG TAB PO SCH ×4 (00:58→17:04)
[2020-12-04 07:21] LABS: Eosinophils # (auto) 0.05 K/uL (0-0.5); Eosinophils % (auto) 0.8 %; Hematocrit (blood only) 34.1 % (42-52); Hemoglobin 11.2 g/dL (14.0-18.0); Immature Granulocytes # (auto) 0.03 K/uL (0.00-0.02); Immature Granulocytes % (auto) 0.5 %; Lymphocytes # (auto) 0.49 K/uL (1.2-3.4); Lymphocytes % (auto) 7.8 %; Mean Corpuscular Hemoglobin 31.5 pg (25-34); Mean Corpuscular Hgb Conc 32.8 g/dL (32-36); Mean Corpuscular Volume 96.1 fL (80-100); Mean Platelet Volume 11.3 fL (7.4-10.4); Monocytes # (auto) 0.43 K/uL (0.11-0.59); Monocytes % (auto) 6.8 %; Neutrophils # (auto) 5.28 K/uL (1.4-6.5); Neutrophils % (auto) 84.1 %; Platelet Count 180 K/uL (130-400); RDW Coefficient of Variation 16.2 % (11.5-14.5); RDW Standard Deviation 56.3 fL (36.4-46.3); Red Blood Count 3.55 M/uL (4.7-6.1); White Blood Count 6.28 K/uL (4.8-10.8)
[2020-12-04 07:55] LABS: BUN Creatinine Ratio 40.3 (10-20); Calcium 8.3 mg/dl (8.5-10.1); Creatinine Clr Calc Pharmacy 94.9 ml/min; Est GFR (African American) 106.4 ml/min; Est GFR (Non-African American) 91.8 ml/min; Potassium 4.7 mmol/L (3.5-5.1)
[2020-12-04] MEDS: FINASTERIDE 5 MG TAB PO SCH (07:58)
[2020-12-04] MEDS: APIXABAN 5 MG TABLET PO SCH ×2 (07:58→21:36)
[2020-12-04] MEDS: NYSTATIN SUSP 500,000 U/5 ML UDC PO SCH ×4 (07:59→21:36)
[2020-12-04] MEDS: METOPROLOL TARTRATE 50 MG TAB PO SCH ×2 (07:59→21:35)
[2020-12-04] MEDS: RIVASTIGMINE TARTRATE 1.5 MG CAP PO SCH ×2 (07:59→21:35)
[2020-12-04] MEDS: TAMSULOSIN HCL 0.4 MG CAP PO SCH (08:00)
[2020-12-04] MEDS: MEMANTINE HCL 10 MG TAB PO SCH ×2 (08:00→21:36)
[2020-12-04] MEDS: PANTOprazole 40 MG TAB PO SCH (09:07)
[2020-12-04] MEDS: LORazepam 0.5 MG TAB PO SCH ×2 (10:02→21:44)
[2020-12-04] MEDS: LANSOPRAZOLE 30 MG SOLTAB PO SCH (10:02)
[2020-12-04] MEDS: ERTAPENEM SODIUM 1,000 MG in SODIUM CHLORIDE 0.9% 50 ML IV SCH (11:28)
--- NOTE | 2020-12-04 20:54 | Hospitalist Progress Note ---
Date of Service December 04, 2020 Assessment & Plan (1) Atrial fibrillation: Typically on diltiazem 30mg TID + metoprolol 25mg BID. Rates had been uncontrolled with above. Increased metoprolol to 37.5mg initially, rates still high. Increase again to 50mg BID. Diltiazem increased to 30mg q6h. With above his rates are now upper 90s/low 100s - acceptable given his advanced dementia, etc. TSH wnl - no hyperthyroidism. Cont eliquis. 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 (4) Sepsis: 2nd to UTI sepsis resolved (5) Metabolic encephalopathy: due to UTI and hypernatremia this is in the setting of underlying Lewy Body dementia Seroquel, Ativan and celexa were stopped at request of daughter per the PDMP he was on ativan at least since September 2020 cannot rule out he is having some mild withdrawal (tachycardia, etc) resumed ativan at 0.25mg BID and wean off more slowly over 1-2 weeks to avoid withdrawal mental status seems to be at baseline - he has good days and bad days (awake on some, sleepy on others) (6) Hypernatremia: Sodium 158 upon admission Resolved he is off fluids BMP today with normal Na (7) Lewy body dementia: cont Namenda and Rivastigmine seroquel, celexa, and ativan were d/c this admission resumed ativan - albeit at lower dose of 0.25mg BID - to prevent withdrawal (PDMP shows he has been on ativan at least since early September 2020) (8) BPH w urinary obs/LUTS: perez since July 2020 recurrent UTIs as noted above Dr Lai spoke with Dr. Boom Ramirez with IR at [facility] Dr Lai inquired with Dr Ramirez about prostate embolization for BPH (with hopes of being able to d/c perez) Dr Ramirez requested that the patient be set up with urology in [place] to evaluate his candidacy for this procedure he is on books for appt in [place] December 16 with [facility] [place] cont perez in meantime perez was exchanged December 02 (9) Parkinson's disease: or parkinsonism 2nd to Lewy-Body dementia? (10) Recurrent UTI: as above (11) GERD (gastroesophageal reflux disease): cont PPI (12) Hypertension: BB CCB controlled (13) Thrombocytopenia: 2nd to recent infection?? likely, as platelets normalized with Rx of UTI. platelets today 180. B12, folate, TSH wnl (14) DVT prophylaxis: eliquis 5mg BID left message for Mariana Biggs, daughter, on 12/02 updated Mariana at bedside 12/03 then updated her again by phone 12/04 back to SNF tomorrow Admission and Anticipated Discharge Date Admission Date: November 25, 2020 Subjective no issues overnight patient sleepy today but no agitation I could not wake him during rounds thus, ROS or history not obtained ate poorly today taking some liquids for meds, etc some minor hematuria in perez Review of Systems Review of Systems: Unobtainable due to cognitive status Physical Exam Constitutional: + altered mental status; no acute distress Respiratory: normal respiratory effort, lungs clear to auscultation Cardiovascular: Rate/Rhythm: regular rate and + irregularly irregular Heart Sounds: normal S1 and normal S2; no murmur Vessels: posterior tibial pulses present and dorsalis pedis pulses present; no JVD Extremities: no edema Gastrointestinal (Abdomen): normal bowel sounds, soft, nontender, no hepatosplenomegaly Psychiatric: Orientation: + not alert and + not oriented x 3 Results & Data Results & Data ([facility]) Vital Signs (Past 12 Hours) Vital Signs Temp Pulse Resp BP Pulse Ox 12/04/20 15:42 36.4 C L 96 H 19 106/70 98 12/04/20 11:54 36.6 C 98 H 16 111/68 97 Laboratory Results Laboratory Results - last 24 hr 12/04/20 12/04/20 06:55 06:55 WBC 6.28 RBC 3.55 L Hgb 11.2 L Hct 34.1 L MCV 96.1 MCH 31.5 MCHC 32.8 RDW Std Deviation 56.3 H RDW Coeff of Sandrine 16.2 H Plt Count 180 MPV 11.3 H Immature Gran % (Auto) 0.5 Neut % (Auto) 84.1 Lymph % (Auto) 7.8 [place] % (Auto) 6.8 Eos % (Auto) 0.8 Baso % (Auto) 0.0 Neut # (Auto) 5.28 Lymph # (Auto) 0.49 L [place] # (Auto) 0.43 Eos # (Auto) 0.05 Baso # (Auto) 0.00 Immature Gran # (Auto) 0.03 H Sodium 139 Potassium 4.7 Chloride 110 H Carbon Dioxide 24 Anion Gap 5.0 BUN 26 H Creatinine 0.64 Est Cr Clr Drug Dosing 94.9 Est GFR ( Amer) 106.4 Est GFR (Non-Af Amer) 91.8 BUN/Creatinine Ratio 40.3 H Glucose 94 Calcium 8.3 L PG Care Time/CCT Total # of Minutes Spent Total Time Spent with Patient: Total time spent is greater than 50% in coordination of care (as documented) at patient's floor/unit and/or counseling patient: Coding Level of Care Code None Diagnoses Atrial fibrillation I48.91 Candidiasis of mouth and esophagus B37.81; B37.0 Catheter-associated urinary tract infection T83.511A; N39.0 Sepsis A41.9; R65.20; J96.01 Acute respiratory failure type: with hypoxia Sepsis acute organ dysfunction status: with acute organ dysfunction Sepsis type: sepsis due to unspecified organism Severe sepsis acute organ dysfunction type: acute respiratory failure Severe sepsis shock status: unspecified Metabolic encephalopathy G93.41 Hypernatremia E87.0 Lewy body dementia G31.83; F02.80 BPH w urinary obs/LUTS N40.1; N13.8 Parkinson's disease G20 Recurrent UTI N39.0 GERD (gastroesophageal reflux disease) K21.9 Hypertension I10 Thrombocytopenia D69.6 DVT prophylaxis Z29.9 Comment see separate "PG e/m" entry dated 12/04/20 for coding. (1) Sepsis Acute respiratory failure type: with hypoxia Sepsis acute organ dysfunction status: with acute organ dysfunction Sepsis type: sepsis due to unspecified organism Severe sepsis acute organ dysfunction type: acute respiratory failure Severe sepsis shock status: unspecified Qualified Code(s): A41.9 - Sepsis, unspecified organism; R65.20 - Severe sepsis without septic shock; J96.01 - Acute respiratory failure with hypoxia
--- NOTE | 2020-12-04 23:35 | Billing Data ---
Date of Service December 04, 2020 Coding Level of Care Code 63135 Subseq Hosp Care Lvl 2
[2020-12-05] MEDS: dilTIAZem HCL 30 MG TAB PO SCH ×3 (00:34→11:38)
[2020-12-05] MEDS: LORazepam 0.5 MG TAB PO SCH (08:05)
[2020-12-05] MEDS: RIVASTIGMINE TARTRATE 1.5 MG CAP PO SCH (08:05)
[2020-12-05] MEDS: APIXABAN 5 MG TABLET PO SCH (08:05)
[2020-12-05] MEDS: METOPROLOL TARTRATE 50 MG TAB PO SCH (08:05)
[2020-12-05] MEDS: NYSTATIN SUSP 500,000 U/5 ML UDC PO SCH ×2 (08:05→11:38)
[2020-12-05] MEDS: MEMANTINE HCL 10 MG TAB PO SCH (08:05)
[2020-12-05] MEDS: FINASTERIDE 5 MG TAB PO SCH (08:10)
[2020-12-05] MEDS: LANSOPRAZOLE 30 MG SOLTAB PO SCH (08:10)
[2020-12-05] MEDS: TAMSULOSIN HCL 0.4 MG CAP PO SCH (08:10)
[2020-12-05 10:18] LABS: BUN Creatinine Ratio 33.8 (10-20); Calcium 8.6 mg/dl (8.5-10.1); Creatinine Clr Calc Pharmacy 89.1 ml/min; Est GFR (African American) 103.8 ml/min; Est GFR (Non-African American) 89.6 ml/min
[2020-12-05] MEDS: ERTAPENEM SODIUM 1,000 MG in SODIUM CHLORIDE 0.9% 50 ML IV SCH (11:38)
--- NOTE | 2020-12-05 14:08 | Discharge Summary ---
Date of Service date of admission - November 25, 2020 date of discharge - December 05, 2020 Admission HPI Per Admitting Provider The patient is an 80-year-old male with a past medical history including Lewy body dementia, Parkinson's disease, restlessness and agitation, acute kidney failure, atrial fibrillation, BPH with LUTS, CAD, UTI, PAD, hypertension, neurogenic bladder, GERD, hyperlipidemia, anxiety, oropharyngeal phase dysphagia, cognitive deficit and recurrent major depressive disorder. He presents from [facility] as noted above. Work-up in the emergency department included following abnormal laboratories: Sodium 158, INR 1.3, AST 60, lactic acid 4.2, troponin 0.054, albumin 2.3, serum osmolality 333, urine osmolality 416. Patient was COVID-19 negative. Chest x-ray showed cardiomegaly with evidence of congestive heart failure and interstitial edema with radiographic follow-up to resolution recommended. Principal Diagnosis 1. Complicated / catheter-associated UTI 2. Sepsis due to #1 Discharge Exam Constitutional + altered mental status; no acute distress ENMT Mouth: + tongue abnormality (thrush plaques) Respiratory normal respiratory effort, lungs clear to auscultation Cardiovascular Rate/Rhythm: regular rate and + irregularly irregular Heart Sounds: normal S1 and normal S2; no murmur Vessels: posterior tibial pulses present and dorsalis pedis pulses present; no JVD Extremities: no edema Gastrointestinal (Abdomen) normal bowel sounds, soft, nontender, no hepatosplenomegaly SCOT (performed on day of discharge) - fecal impaction; manual removal of stool. Prostate enlarged but not boggy. No apparent tenderness. No obvious nodules. Skin sacral decubitus ulcer - large Psychiatric Orientation: + not alert and + not oriented x 3 Genitourinary + penile swelling and + scrotal swelling Discharge Data Allergies Allergy/AdvReac Type Severity Reaction Status Date / Time dorzolamide Allergy Unknown ON Verified 11/25/20 19:07 [facility] haloperidol [From Haldol] Allergy Unknown ON Verified 11/25/20 19:07 [facility] olanzapine [From Zyprexa] Allergy Unknown ON Verified 11/25/20 19:07 [facility] Consultations [facility] [place] [facility] Infectious Diseases Telehealth Procedures Performed Echocardiogram - * EF 50-55% * mild mitral regurgitation * mild tricuspid regurgitation * no regional wall motion abnormalities Hospital Course (1) Catheter-associated urinary tract infection: 2nd Providencia stuartii and Klebsiella pneumoniae ESBL. Both sensitive to ertapenem. Received ~7-8 days of such, and will complete 7 more days of ertapenem post- discharge via peripherally inserted u/s-guided IV. SCOT before hospital discharge was not suggestive of prostatitis. Perez catheter was exchanged on 12/02/20. Patient has prior h/o serious gram negative UTIs as well as VRE. (2) Sepsis: 2nd to UTI sepsis resolved (3) Atrial fibrillation: Typically on diltiazem 30mg TID + metoprolol 25mg BID. Rates had been uncontrolled with above. Increased metoprolol to 50mg BID and Diltiazem was increased to 30mg q6h. With above his rates improved to the upper 90s/low 100s - acceptable given his advanced dementia, etc. TSH wnl - no hyperthyroidism. Cont eliquis. (4) Candidiasis of mouth and esophagus: nystatin solution 5cc qid swish/swallow (5) Metabolic encephalopathy: due to UTI and hypernatremia this is in the setting of underlying Lewy Body dementia Seroquel, Ativan and celexa were stopped at request of daughter per the PDMP he was on ativan at least since September 2020 to avoid withdrawal he will be weaned off ativan slowly over several weeks specifically - he will take ativan 0.25mg BID for 6 more days, then 0.25mg once daily for 7 days, then off (6) Hypernatremia: Sodium 158 upon admission Resolved with IV fluids (7) Lewy body dementia: advanced cont Namenda and Rivastigmine seroquel and celexa were discontinued at the request of the patient's daughter (8) BPH w urinary obs/LUTS: perez since July 2020 recurrent UTIs as noted above Dr Mauricio Lai spoke with Dr. Boom Ramirez with IR at [facility] Dr Lai inquired with Dr Ramirez about prostate embolization for BPH (with hopes of being able to d/c perez) Dr Ramirez requested that the patient be set up with urology in [place] to evaluate his candidacy for this procedure Patient has a consult scheduled in [place] on December 16 with [facility] urology cont perez in meantime perez was exchanged December 02 (9) Parkinson's disease: or parkinsonism 2nd to Lewy-Body dementia? (10) Recurrent UTI: as above (11) GERD (gastroesophageal reflux disease): cont PPI (12) Hypertension: continue BB continue CCB controlled (13) Thrombocytopenia: suspect 2nd to UTI. likely, as platelets normalized with Rx of UTI. platelets 180 prior to discharge. B12, folate, TSH wnl (14) Sacral decubitus ulcer: recommend consulting wound care upon return to SNF to follow this wound. he is at high risk of this wound worsening because of his immobility, incontinence, and poor nutritional status. (15) Elevated troponin: Likely myocardial demand ischemia in the setting of sepsis/UTI. Minimal elevation while here. No obvious ischemic symptoms or ischemic changes on EKG. Total Time Total Time Spent Total Time Spent (In Minutes): 45 Total Time Includes: Examination of the Patient, Discharge Planning, Medication Reconciliation and Communication With Other Providers Discharge Plan Discharge Items Patient Disposition: Trans Resident Long-Term Care Reason For Visit: HYPERNATREMIA, UTI Discharge Diagnosis: 1. hypernatremia- resolved 2. UTI- due to ESBL klebsiella pneumoniae and providencia- resolving; prostate exam without evidence of acute prostatitis 3. advanced Lewy-Body Dementia 4. chronic perez catheter - exchanged on December 02 at [facility] 5. BPH with urinary retention - requiring chronic perez 6. atrial fibrillation 7. stage 2 sacral decubitus ulcer 8. thrush Activity: Resume your previous activity Non-emergency contact: Primary Care Provider Call non-emergency contact if: your symptoms worsen and you have a fever Follow-up/Referrals: [facility] [Outside] ([facility] urology [place] -- December 16, 2020 -- 2:00pm. Dx - BPH, perez, urinary retention; appt to see if he is candidate for prostate embolization procedure by [facility] ) Jag Sommer [Primary Care Provider] - Diet: Regular Diet Texture: Pureed (blended smooth) Addtl Attending Provider Instructions: Mr Alston was treated for the problems listed above in "discharge diagnoses." He needs 7 additional days of IV ertapenem antibiotic with first dose on 12/06/20. Peripheral u/s-guided IV is in place for such. Please follow the instructions given by [facility] team for sacral decubitus ulcer. Would recommend wound care team at [facility] be consulted for management of this wound. Strongly recommend palliative care consultation as long-term prognosis is poor. Of note - ativan (lorazepam) is being weaned off. Schedule - * 0.25mg twice daily x 6 more days, then - * 0.25mg at bedtime x 7 days, then stop Pending Studies at Discharge: No Stand-Alone Forms: My [facility] Skilled Items Patient informed of condition?: No DNR: Yes Discharge Level of Care: Skilled Communicable Disease: Yes Discharge Prognosis: Stable Lines: US Guided Peripheral IV Urinary Catheter: Yes Medications and DC Order Prescriptions: New nystatin 100,000 unit/mL Suspension 5 ml PO QID 10 Days Qty: 200 RF: 0 lansoprazole [Prevacid SoluTab] 30 mg Tablet,Disintegrat, Delay Rel 30 mg PO QAM Qty: 30 RF: 0 ertapenem 1 gram recon soln 1 g IV DAILY 7 Days Qty: 7 RF: 0 Lactinex 1 million cell tablet,chewable 1 tab PO TID 10 Days Qty: 30 RF: 0 Continued rivastigmine tartrate 1.5 mg Capsule 1.5 mg PO BID RF: 0 sennosides [senna] 8.6 mg Tablet 17.2 mg PO HS RF: 0 acetaminophen [Tylenol] 325 mg Tablet 650 mg PO Q6H MDD 3 GRAMS/24 HOURS PRN (Reason: TEMP >101/PAIN) RF: 0 polyethylene glycol 3350 [Miralax] 17 gram Powder In Packet 17 g PO QAM RF: 0 bacitracin 500 unit/gram Ointment 1 applic TOPICAL TID RF: 0 tamsulosin [Flomax] 0.4 mg Capsule 0.4 mg PO DAILY RF: 0 finasteride 5 mg Tablet 5 mg PO DAILY RF: 0 bisacodyl 5 mg Tablet 5 mg PO Q24H PRN (Reason: NO BM) RF: 0 memantine 5 mg Tablet 10 mg PO BID RF: 0 Eliquis 5 mg Tablet 5 mg PO BID RF: 0 Changed lorazepam [Ativan] 0.5 mg Tablet 0.25 mg PO DIRECTED Qty: 30 RF: 0 diltiazem HCl 30 mg Tablet 30 mg PO QID Qty: 0 RF: 0 metoprolol tartrate 25 mg Tablet 50 mg PO BID Qty: 0 RF: 0 Discontinued quetiapine [Seroquel] 25 mg Tablet See Rx Instructions .ROUTE .COMPLEX RF: 0 citalopram [Celexa] 10 mg Tablet 10 mg PO QAM RF: 0 sulfamethoxazole-trimethoprim [Bactrim DS] 800-160 mg Tablet 1 tab PO BID RF: 0 quetiapine [Seroquel] 100 mg Tablet 100 mg PO HS RF: 0 pantoprazole 40 mg Tablet,Delayed Release (Dr/Ec) 40 mg PO DAILY RF: 0 felodipine 10 mg Tablet Extended Release 24 Hr 10 mg PO DAILY RF: 0 Discharge Orders: Discharge Order (Routine); Ordered 12/05/20 Ordered By: Kenny Lopez Admission Data Admit Date/Time: 11/25/20 21:34 Attending Provider: Kenny Lopez Admit Provider: Dieudonne Zapata Primary Care Provider: Jag Sommer Other Providers: Dieudonne Zapata ; Ros, ; Cole Calderon ; Bari Orellana ; Sharmin Messina ; Henry Walker I. ; Espinoza Fisher II ; Rupal iSerra ; Jeison Burciaga Other Interventions: Discharge Summary Assessment (RN) Last Done: 12/05/20 14:06 Coding Level of Care Code D/C Day Management >30 mins Diagnoses Catheter-associated urinary tract infection T83.511A; N39.0 Sepsis A41.9; R65.20; J96.01 Acute respiratory failure type: with hypoxia Sepsis acute organ dysfunction status: with acute organ dysfunction Sepsis type: sepsis due to unspecified organism Severe sepsis acute organ dysfunction type: acute respiratory failure Severe sepsis shock status: unspecified Atrial fibrillation I48.91 Candidiasis of mouth and esophagus B37.81; B37.0 Metabolic encephalopathy G93.41 Hypernatremia E87.0 Lewy body dementia G31.83; F02.80 BPH w urinary obs/LUTS N40.1; N13.8 Parkinson's disease G20 Recurrent UTI N39.0 GERD (gastroesophageal reflux disease) K21.9 Hypertension I10 Thrombocytopenia D69.6 Sacral decubitus ulcer L89.159 Elevated troponin R77.8
--- NOTE | 2020-12-17 12:51 | Coding Query ---
PRESSURE ULCER DOCUMENTATION To promote full compliance with coding requirements relating to patient care, physician participation is requested in all cases of utility lineman uncertainty. Please assist us with the question(s) below: Please specify the known or suspected type by placing an "X" within the parenthesis (x). A pressure ulcer of the sacrum If possible, please check the box that provides the specific stage of the pressure ulcer ( x ) Stage I ( ) Stage II ( ) Stage III ( ) Stage IV ( ) Unstageable ( ) Unable to determine Was the pressure ulcer present on admission? Please check the appropriate box for the pressure ulcer: ( x ) Present on admission ( ) Not present on admission ( ) Unable to be clinically determined Thank you Keely BECKFORD
== END 2020-12-05 14:30 | DRG 698 ==
LOC: ED 18:07 → 2S 21:34 → SUATTDRO 21:34 → 2S 22:34